=== PATIENT | male | born 1970 | race Caucasian/White ===

== ENCOUNTER 2023-05-22 18:59 | Inpatient (IN) ==
--- NOTE | 2023-05-22 19:10 | Emergency Department Note ---
History of Present Illness General Chief complaint: Back Injury/Pain Stated complaint: BACK PAIN,WRIST PAIN Time Seen by Provider: 05/22/23 19:08 History of Present Illness Maximum Pain Intensity: 10 This is a 52-year-old male that presents to the emergency department via private vehicle with complaints of "back pain, wrist pain". Patient states that he has been experiencing low back issues since 2007. He notes this was regarding old injury at L5-S1. He has been dealing with the pain but as of recent, particularly over the past few months notes worsening pain. Then, today he notes he was descending a set of attic stairs and an object he was carrying became caught and then released causing him to fall about 2 feet landing on his feet and then shoulder into a cabinet. He then fell to the ground catching himself with his hands. He notes low back pain that radiates down both legs with associated leg weakness. He notes he has had the low back pain and radicular symptoms before but the weakness is new. No loss of control or bowel/bladder. No genital numbness. The patient denies any pertinent past medical history other than the low back discomfort. He does note history of ACL surgery. He notes allergy to hydrocodone which causes some anger. He denies headache or loss of consciousness. No neck pain. No chest pain. No abdominal pain. Home Medications Medication Instructions Recorded Confirmed Type meloxicam 7.5 mg tablet 7.5 mg PO DAILY PRN pain #90 tabs 05/11/22 05/22/23 Rx ondansetron 4 mg disintegrating 4 mg PO Q6H PRN nausea and 11/03/22 05/22/23 Rx tablet vomiting #10 tabs rizatriptan 10 mg disintegrating See Rx Instructions PO .COMPLEX 11/19/22 05/22/23 Rx tablet #30 tabs lorazepam 1 mg tablet 1 mg PO DAILY PRN anxiety #30 tabs 03/11/23 05/22/23 Rx digital therapeutic,ALEYDA device #1 ea 04/22/23 05/22/23 Rx magnesium glycinate 400 mg (4 x 100 mg magnesium) PO 04/22/23 05/22/23 Rx DAILY #30 caps propranolol 60 mg capsule,24 60 mg PO DAILY #30 caps 04/22/23 05/22/23 Rx hr,extended release riboflavin (vitamin B2) 400 mg 400 mg PO DAILY #30 tabs 04/22/23 05/22/23 Rx tablet bupropion HCl 150 mg tablet,12 hr 150 mg PO QAM 05/10/23 05/22/23 History sustained-release aripiprazole 2 mg tablet 2 mg PO DAILY #30 tabs 05/13/23 05/22/23 Rx duloxetine 30 mg capsule,delayed 30 mg PO QAM 05/22/23 05/22/23 History release duloxetine 60 mg capsule,delayed 60 mg PO QAM 05/22/23 05/22/23 History release Allergies Allergy/AdvReac Type Severity Reaction Status Date / Time hydrocodone AdvReac Intermediate Irritable Verified 05/22/23 22:43 Past Med/Surg History Medical History Migraines Bilateral nonpulsatile tinnitus Depression with anxiety Chronic wrist pain Surgical History History of arthroscopy of left knee 11/03/22 ([place]) Left knee scope, PMM, subtotal lateral meniscectomy, chondroplasty and debridement of calcinosis Hx of colonoscopy Hx of tonsillectomy S/P ACL repair Left S/P ACL repair Right Family History Mother Brain cancer Father Diabetes Denies family history of Ovarian cancer Prostate cancer Myocardial infarction Breast cancer Colorectal cancer Social History Smoking Status: Never smoker Second Hand Exposure: Yes (hx as child); Do You Dip or Chew Tobacco: No; Hx Alcohol Use: No Hx Substance Use: No Preferred Language: Palauan Communication Ability: Effective Director Of Home Care Hospice Required: No Beliefs That Will Affect Care: None marital status: Current Living Situation: Significant Other current occupational status: employed Feels Safe at Home: Yes Childhood Exposure to Second-Hand Smoke: Yes Dental Care, Regularly: Yes Physical Activity Frequency: 3-4 Times per Week Seatbelt Use: always Sunscreen Use: Yes Assistive Devices: Glasses Review of Systems A total of 10 systems reviewed and were otherwise negative Physical Exam Vital Signs Vital Signs - 24 hr 05/22/23 19:00 05/22/23 19:51 05/22/23 19:52 Temperature 36.7 C Temperature Source Temporal Artery Scan Pulse Rate 82 Pulse Rate [Finger] 68 Pulse Rhythm [Finger] Pulse Strength [Finger] Respiratory Rate 18 18 Respiratory Effort / Characteristics Non-Labored Spontaneous Non-Labored Respiratory Depth Normal Normal Respiratory Pattern Regular Blood Pressure 155/75 H Blood Pressure [Left Arm] 103/77 Blood Pressure Mean 101 Blood Pressure Mean [Left Arm] 85 Blood Pressure Position Sitting Pulse Oximetry 94 94 94 Oxygen Delivery Method Room Air Room Air Sepsis Recent Fever Within 48 Hours No Sepsis New/Unexplained Change in Mental Status N/A Sepsis Action Taken by Nursing No Action Required 05/22/23 21:00 05/22/23 23:00 Temperature Temperature Source Pulse Rate Pulse Rate [Finger] 71 72 Pulse Rhythm [Finger] Regular Pulse Strength [Finger] Normal Respiratory Rate 14 16 Respiratory Effort / Characteristics Non-Labored Respiratory Depth Normal Respiratory Pattern Blood Pressure Blood Pressure [Left Arm] 130/95 127/88 Blood Pressure Mean Blood Pressure Mean [Left Arm] 106 101 Blood Pressure Position Pulse Oximetry 93 93 Oxygen Delivery Method Room Air Room Air Sepsis Recent Fever Within 48 Hours Sepsis New/Unexplained Change in Mental Status Sepsis Action Taken by Nursing VITAL SIGNS - Vital signs and nursing notes were reviewed. Stable and afebrile. GENERAL -52-year-old male appearing his stated age who is in no acute distress but appears to be in pain. Communicates well with provider and answers questions appropriately. SKIN - Without rashes. No meningeal or petechial rash. The skin overlying the back is unremarkable. No break in the integument. No erythema. No crepitus. HEAD - NC/AT. No dickson signs or raccoon's eyes. EYES - PERRL with EOMI bilaterally. Sclera anicteric. No subconjunctival hemorrhage. EARS -no blood from the ear canals. NOSE - Midline and without cyanosis. No epistaxis or purulent drainage noted. MOUTH/OROPHARYNX - Without perioral cyanosis. NECK - Neck with FROM. LUNGS -CTA CARDIAC - RRR ABDOMEN - Abdominal contour normal without pulsations or visible masses. No guarding or rigidity. EXTREMITIES - No clubbing or peripheral cyanosis. +5/5 strength noted in UE/LE bilaterally. NEUROLOGIC - Cranial nerves II through XII grossly intact. Sensory intact to light touch throughout. Initial assessment of patellar reflexes deferred noting the patient's discomfort and tense musculature in the lower extremities. PSYCH -alert, oriented and pleasant on exam. Course Administered Medications Discontinued Medications Dexamethasone Sodium Phosphate (DexamethasonePf 10 Mg/Ml Vial) 10 mg IV NOW ONE Stop: 05/22/23 21:35 Last Admin: 05/22/23 21:38 Dose: 10 mg Documented By: CASE Gadobutrol (Gadobutrol 65ml Vial) 10 ml IV ONCE ONE Stop: 05/23/23 01:48 Last Admin: 05/23/23 01:47 Dose: 10 ml Documented By: CONOR Hydromorphone HCl (Hydromorphone Inj 0.5 Mg/0.5 Ml Syr) 0.5 mg IV NOW STA Stop: 05/22/23 19:29 Last Admin: 05/22/23 19:44 Dose: 0.5 mg Documented By: CASE Hydromorphone HCl (Hydromorphone Inj 0.5 Mg/0.5 Ml Syr) 0.5 mg IV NOW STA Stop: 05/22/23 23:07 Last Admin: 05/22/23 23:35 Dose: 0.5 mg Documented By: ARY Hydromorphone HCl (Hydromorphone Inj 0.5 Mg/0.5 Ml Syr) 0.5 mg IV NOW STA Stop: 05/23/23 01:05 Last Admin: 05/23/23 01:15 Dose: 0.5 mg Documented By: ARY Ketorolac Tromethamine (Ketorolac Tromethamine 15 Mg/Ml Vial) 15 mg IV NOW STA Stop: 05/22/23 21:35 Last Admin: 05/22/23 21:39 Dose: 15 mg Documented By: CASE Ondansetron HCl (Ondansetron Inj 2 Mg/Ml 2 Ml Vial) 4 mg IV NOW STA Stop: 05/22/23 19:29 Last Admin: 05/22/23 19:44 Dose: 4 mg Documented By: CASE Medical Decision Making Laboratory Data 05/22/23 19:45 05/22/23 19:45 Lab Results 05/22/23 Range/Units 19:45 WBC 7.06 (4.8-10.8) K/ul RBC 5.25 (4.70-6.10) M/uL Hgb 17.0 (14.0-18.0) g/dl Hct 47.3 (42.0-52.0) % MCV 90.1 (80.0-100.0) fL MCH 32.4 (25.0-34.0) pg MCHC 35.9 (32.0-36.0) g/dL RDW Std Deviation 42.3 (36.4-46.3) fL RDW Coeff of Juan Miguel 12.8 (11.5-14.5) % Plt Count 209 (130-400) K/uL MPV 9.9 (9.4-12.4) fL Immature Gran % (Auto) 0.7 % Neut % (Auto) 57.0 % Lymph % (Auto) 28.0 % Edmunds % (Auto) 10.8 % Eos % (Auto) 2.8 % Baso % (Auto) 0.7 % Neut # (Auto) 4.02 (1.40-6.50) K/uL Lymph # (Auto) 1.98 (1.20-3.40) K/uL Edmunds # (Auto) 0.76 H (0.11-0.59) K/uL Eos # (Auto) 0.20 (0.00-0.50) K/uL Baso # (Auto) 0.05 (0.00-0.20) K/uL Immature Gran # (Auto) 0.05 (0.01-0.20) K/uL ESR 12 (0-20) mm/hr Sodium 135 L (136-145) mmol/L Potassium 4.4 (3.5-5.1) mmol/L Chloride 103 (98-107) mmol/L Carbon Dioxide 25 (21-32) mmol/L Anion Gap 7 (3-11) BUN 18 (6-23) mg/dl Creatinine 1.24 (0.6-1.4) mg/dl Est Cr Clr Drug Dosing Not Reportable Est GFR ( Amer) 75.9 ml/min Est GFR (Non-Af Amer) 65.5 ml/min BUN/Creatinine Ratio 14.5 (10-20) Glucose 105 H (70-99(Fasting)) mg/dl Calcium 9.2 (8.6-10.3) mg/dl Total Bilirubin 0.4 (0.2-1.0) mg/dl AST 29 (13-39) U/L ALT 51 (7-52) U/L Alkaline Phosphatase 126 H (34-104) U/L C-Reactive Protein < 0.50 (0-0.5) mg/dl Total Protein 6.8 (6.0-8.3) gm/dl Albumin 4.3 (3.4-5.0) gm/dl Globulin 2.5 (2.5-4.0) gm/dl Albumin/Globulin Ratio 1.7 (0.9-2) Procalcitonin 0.06 (0-0.5) ng/ml Imaging Data My Impression: L wrist: Per my interpretation: No acute fracture or dislocation. There are small ossific densities present within the joint space between the distal radius/ulna and carpal bones as well as chronic appearing abnormality to the distal ulnar styloid region. Radiologist's Impression: Lumbar Spine MRI 05/22/23 19:28 CR Exam(s): MRI L SPINE Without Contrast EXAM: MR Lumbar Spine Without Intravenous Contrast CLINICAL HISTORY: Reason for exam: Low back pain into legs, leg weakness. TECHNIQUE: Magnetic resonance images of the lumbar spine without intravenous contrast in multiple planes. COMPARISON: No relevant prior studies available. FINDINGS: Vertebrae: There are 5 lumbar type vertebral bodies with a mild generalized curve to the right and normal lumbar lordosis. There is normal vertebral body height and alignment. There is extensive bone marrow edema in the L4 vertebral body with subtle erosive endplate changes. There is minimal bone marrow edema at the superior endplate of L5. Reactive endplate changes at L5-S1. Spinal cord: The conus is normal size, shape and signal characteristics, terminating at L1-L2. Soft tissues: There is mild prevertebral soft tissue swelling at L5-S1. There is mild atrophy of the iliopsoas, paraspinous and intraspinous musculature. The aorta and IVC flow voids are intact. The visualized kidneys are unremarkable. IMPRESSION: Extensive bone marrow edema at L4 with erosive endplate changes at the inferior endplate and mild prevertebral soft tissue swelling concern for possible early discovertebral osteomyelitis or minimally displaced fracture. Recommend postcontrast MR imaging and CT scan for further evaluation. Communications: Verify Receipt Electronically signed by: Nikki Molina MD 05/23/23 00:34 AM MDM Narrative Patient was seen and evaluated as above in room D03b. Review was performed of triage nursing notes and vital signs. Patient presents to us today for evaluation of low back pain similar to previous but now with leg weakness. This is in the setting of very minimal trauma without any direct strike to the spine. He fell about 2 feet landing on his own feet. Vital signs here are stable. The patient does note lower extremity weakness but has not lost control of bowel/bladder. No genital numbness. No weakness on my assessment. Options of care were discussed with the patient. IV access was established. Patient was medicated with IV Dilaudid as well as IV Toradol and IV dexamethasone to manage his low back pain with radicular symptoms. It is felt that the benefit of the medication outweighed risk. Labs were drawn. There is no leukocytosis or concerning anemia. Mild hyponatremia 135. Mild hyperglycemia 105. Alk phos 126. X-ray of the patient's left wrist without definitive fracture or dislocation. There are small ossific densities present within the joint space between the distal radius/ulna and carpal bones as well as chronic appearing abnormality to the distal ulnar styloid region. Formal radiology report will be available in the a.m. Wrist overall very minimally tender and 02/24. Will hold off on splinting at this time. In regard to the back, we will proceed straight to MRI of the L-spine noting the patient's symptoms. This was obtained. Results as above. I was called by the [place] regarding this finding. I did speak to the radiologist as well. There is extensive bone marrow edema at L4 with erosive endplate changes at the inferior endplate and mild prevertebral soft tissue swelling concern for possible early or discovertebral osteomyelitis or minimally displaced fracture. Recommended postcontrast MR imaging and CT scan for further evaluation. In speaking with the radiologist we will proceed with CT of the L-spine without contrast as well as contrasted MRI of the L-spine. I did order the recommended studies. ESR, CRP and Pro-Woody within normal range. At this time we will proceed with further evaluation and management in the inpatient setting. Studies pending at this time. Case discussed with the hospitalist service. Please refer to further documentation regarding his stay. Patient amenable to plan of care. Case discussed with the attending physician. GCS: 15 In the evaluation and treatment of this patient the following differential diagnoses were entertained: Fracture, dislocation, subluxation, contusion, sprain, strain, osteomyelitis, discitis, Vertebral fracture, cord injury, cauda equina syndrome, among others. Impression & Plan Abnormal MRI, lumbar spine, Low back pain, Acute wrist pain Discharge Plan Visit Data Chief Complaint: Back Injury/Pain Stated Complaint: BACK PAIN,WRIST PAIN ED Provider: Diogo Moeller ED Midlevel Provider: Joe Augustine Discharge Problem: Abnormal MRI, lumbar spine, Low back pain, Acute wrist pain Patient Disposition: Admitted As Inpatient Condition: Good Forms Stand Alone Forms: My [facility] Prescriptions Prescriptions: No Action lorazepam 1 mg tablet 1 mg PO DAILY PRN (Reason: anxiety) Qty: 30 0RF Patient Comments: does not use often aripiprazole 2 mg tablet 2 mg PO DAILY Qty: 30 2RF meloxicam 7.5 mg tablet 7.5 mg PO DAILY PRN (Reason: pain) Qty: 90 3RF Nurtec ODT 75 mg tablet,disintegrating 75 mg PO DIRECTED PRN (Reason: Migraine Headache) 0RF riboflavin (vitamin B2) 400 mg tablet 400 mg PO DAILY Qty: 30 0RF magnesium glycinate 100 mg magnesium capsule 400 mg PO DAILY Qty: 30 0RF (DME) digital therapeutic,ALEYDA device Misc See Rx Instructions miscellaneous .MEDSUPPLY Qty: 1 0RF Rx Instructions: As directed propranolol 60 mg capsule,extended release 24 hr 60 mg PO DAILY Qty: 30 2RF rizatriptan 10 mg tablet,disintegrating See Rx Instructions PO .COMPLEX Qty: 30 3RF Rx Instructions: take 1 tab at onset of headache; if no relief may repeat 1 tab after at least 2 hrs; max = 3 tabs/24 hr PO bupropion HCl 150 mg tablet sustained-release 12 hr 150 mg PO QAM ondansetron 4 mg tablet,disintegrating 4 mg PO Q6H PRN (Reason: nausea and vomiting) Qty: 10 0RF duloxetine 30 mg capsule,delayed release(DR/EC) 30 mg PO QAM Rx Instructions: TOTAL DOSE 90 MG--TAKES WITH 60 MG CAP. duloxetine 60 mg capsule,delayed release(DR/EC) 60 mg PO QAM Rx Instructions: TOTAL DOSE 90 MG--TAKES WITH 30 MG CAP. Referrals Referrals: Kelin Perez MD [Primary Care Provider] -
[2023-05-22] MEDS: HYDROmorphone INJ 0.5 MG/0.5 ML SYR IV STA ×2 (19:44→23:35)
[2023-05-22] MEDS: ONDANSETRON INJ 2 MG/ML 2 ML VIAL IV STA (19:44)
[2023-05-22 20:01] LABS: Basophils # (auto) 0.05 K/uL (0.00-0.20); Basophils % (auto) 0.7 %; Eosinophils % (auto) 2.8 %; Hematocrit (blood only) 47.3 % (42.0-52.0); Immature Granulocytes # (auto) 0.05 K/uL (0.01-0.20); Immature Granulocytes % (auto) 0.7 %; Lymphocytes # (auto) 1.98 K/uL (1.20-3.40); Mean Corpuscular Hemoglobin 32.4 pg (25.0-34.0); Mean Corpuscular Hgb Conc 35.9 g/dL (32.0-36.0); Mean Corpuscular Volume 90.1 fL (80.0-100.0); Mean Platelet Volume 9.9 fL (9.4-12.4); Monocytes # (auto) 0.76 K/uL (0.11-0.59); Monocytes % (auto) 10.8 %; Neutrophils # (auto) 4.02 K/uL (1.40-6.50); Platelet Count 209 K/uL (130-400); RDW Coefficient of Variation 12.8 % (11.5-14.5); RDW Standard Deviation 42.3 fL (36.4-46.3); Red Blood Count 5.25 M/uL (4.70-6.10); White Blood Count 7.06 K/ul (4.8-10.8)
[2023-05-22 20:27] LABS: Alanine Aminotransferase 51 U/L (7-52); Albumin Globulin Ratio 1.7 (0.9-2); Albumin Level 4.3 gm/dl (3.4-5.0); Alkaline Phosphatase 126 U/L (34-104); BUN Creatinine Ratio 14.5 (10-20); Bilirubin,Total 0.4 mg/dl (0.2-1.0); Blood Urea Nitrogen 18 mg/dl (6-23); Calcium 9.2 mg/dl (8.6-10.3); Carbon Dioxide 25 mmol/L (21-32); Chloride 103 mmol/L (98-107); Est GFR (African American) 75.9 ml/min; Est GFR (Non-African American) 65.5 ml/min; Globulin 2.5 gm/dl (2.5-4.0); Glucose 105 mg/dl (70-99(Fasting)); Sodium 135 mmol/L (136-145); Total Protein 6.8 gm/dl (6.0-8.3)
[2023-05-22 20:33] LABS: Anion Gap 7 (3-11); Potassium 4.4 mmol/L (3.5-5.1)
[2023-05-22 20:42] LABS: Aspartate Aminotransferase 29 U/L (13-39)
[2023-05-22] MEDS: dexAMETHasone**PF** 10 MG/ML VIAL IV ONE (21:38)
[2023-05-22] MEDS: KETOROLAC TROMETHAMINE 15 MG/ML VIAL IV STA (21:39)
--- NOTE | 2023-05-23 00:35 | Magnetic Resonance Report ---
Exam(s): MRI L SPINE Without Contrast EXAM: MR Lumbar Spine Without Intravenous Contrast CLINICAL HISTORY: Reason for exam: Low back pain into legs, leg weakness. TECHNIQUE: Magnetic resonance images of the lumbar spine without intravenous contrast in multiple planes. COMPARISON: No relevant prior studies available. FINDINGS: Vertebrae: There are 5 lumbar type vertebral bodies with a mild generalized curve to the right and normal lumbar lordosis. There is normal vertebral body height and alignment. There is extensive bone marrow edema in the L4 vertebral body with subtle erosive endplate changes. There is minimal bone marrow edema at the superior endplate of L5. Reactive endplate changes at L5-S1. Spinal cord: The conus is normal size, shape and signal characteristics, terminating at L1-L2. Soft tissues: There is mild prevertebral soft tissue swelling at L5-S1. There is mild atrophy of the iliopsoas, paraspinous and intraspinous musculature. The aorta and IVC flow voids are intact. The visualized kidneys are unremarkable. IMPRESSION: Extensive bone marrow edema at L4 with erosive endplate changes at the inferior endplate and mild prevertebral soft tissue swelling concern for possible early discovertebral osteomyelitis or minimally displaced fracture. Recommend postcontrast MR imaging and CT scan for further evaluation. Communications: Verify Receipt Electronically signed by: Nikki Molina MD 05/23/23 00:34 AM
--- NOTE | 2023-05-23 01:11 | Emergency Department Note ---
ED Visit Note I have personally evaluated this patient examined him and reviewed the pertinent labs and data. I have discussed the case with the physician certified nursing assistant and agree with the plan. Please refer to the PA note This patient has had chronic back issues that have gotten worse over the last couple months today he had a episode where he landed on his feet after falling about 2 feet. There is no direct trauma to the back. He has had a lot of pain since then and feels like he has some numbness on the lateral aspects of his leg. On my exam, he subjectively has decreased sensation of the lateral aspect of the upper legs he seems to have intact motor however and it is limited secondary to pain. He has no white count or fever to suggest infection. His MRI shows bony abnormality and L4 could be related to osteomyelitis, traumatic injury, both or other. He does not require additional IV pain medication I do not feel he can go home I do think he needs to be admitted/observed for pain management and further imaging to include a contrast MRI and CT. We will consult inpatient team. .
[2023-05-23] MEDS: HYDROmorphone INJ 0.5 MG/0.5 ML SYR IV STA ×2 (01:15→04:04)
[2023-05-23] MEDS: GADOBUTROL 65ML VIAL IV ONE (01:47)
[2023-05-23 02:33] LABS: C Reactive Protein < 0.50 mg/dl (0-0.5)
[2023-05-23] MEDS: diphenhydrAMINE 50 MG/ML VIAL IV STA (04:05)
--- NOTE | 2023-05-23 04:08 | CT Scan Report ---
Exam(s): CT L SPINE EXAM: CT Lumbar Spine Without Intravenous Contrast CLINICAL HISTORY: Reason for exam: Low back pain, leg weakness, abnormal MRI. TECHNIQUE: Axial computed tomography images of the lumbar spine without intravenous contrast. Automated exposure control was utilized for the study. A dose lowering technique was utilized adhering to the principles of ALARA. COMPARISON: Comparison made to prior MRI of the lumbar spine from May 22, 2023 at 9: 56 PM. FINDINGS: Vertebrae: There are 5 lumbar type vertebral bodies with a mild generalized curve to the left and normal lumbar lordosis. There is normal vertebral body height and alignment. There are erosive endplate changes at the inferior endplate of L4 with bony sclerosis. Subtle erosive endplate changes at the superior endplate of L5. There is advanced disc degeneration at L5-S1. No acute fracture. There is mild wedging of the L1 segment, which is likely physiologic. Discs/spinal canal/neural foramina: No acute findings. No spinal canal stenosis. Soft tissues: Unremarkable. IMPRESSION: Findings consistent with discovertebral osteomyelitis at L4-5. Communications: Verify Receipt Electronically signed by: Nikki Molina MD 05/23/23 04:08 AM
--- NOTE | 2023-05-23 04:20 | Magnetic Resonance Report ---
Exam(s): MRI L SPINE With Contrast IV Amt: 10 cc landon EXAM: MR Lumbar Spine With Intravenous Contrast CLINICAL HISTORY: Reason for exam: Abnormal spine MR, back pain, leg weakness. TECHNIQUE: Magnetic resonance images of the lumbar spine with intravenous contrast in multiple planes. CONTRAST: Patient received 10 cc landon of IV contrast COMPARISON: Comparison made to prior MRI of the lumbar spine from May 22, [address] scan of the lumbar spine from May 23, 2023. FINDINGS: Vertebrae: There is significantly increased enhancement of the L4 and mild increased enhancement of the L5 vertebral body with enhancement at the margins of the L4-5 disc. There is a small epidural abscess/phlegmon at L4 and L5. No acute fracture. Spinal cord: Unremarkable. Normal signal. No abnormal enhancement. Soft tissues: Mild prevertebral phlegmon at L4 and L5. IMPRESSION: Findings consistent with discovertebral osteomyelitis at L4-5 with small ventral epidural phlegmon/abscess. Communications: Verify Receipt Electronically signed by: Nikki Molina MD 05/23/23 04:19 AM
[2023-05-23] MEDS ORDERED: VANCOMYCIN CONSULT ACTIVE PRN (05:27)
--- NOTE | 2023-05-23 05:27 | Emergency Department Note ---
ED Visit Note Patient care was assumed from my colleague, Joe Augustine PA-C, at the time of shift change. Please see . Davide's dictation for full history of present illness and emergency department course prior to my assumption of care. In short, the patient has back pain with abnormal appearing noncontrast MRI. Recommendation was to perform contrast MRI, which did return showing concerns for osteomyelitis and small phlegmon versus abscess. Because of this finding the case was discussed with on-call [facility], Dr. Stiles, in consult. Images were pushed to the [employer] system for their review. Recommendation is to start vancomycin and cefepime and await blood culture results. No emergent surgical intervention is necessary at this time. The case was discussed with the on-call hospitalist team. Please see their dictation for further patient course, plan, and disposition. .
[2023-05-23] MEDS ORDERED: CEFEPIME 20 ML IV STA (05:32)
--- NOTE | 2023-05-23 05:44 | History & Physical Report ---
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 Hinton from orthopedic spine surgery at [place] suggest placing patient on vancomycin IV and cefepime IV and admission at [facility] Orthopedic spine surgery Dr. Johnson has been consulted, and reportedly will be available on 05/24 Overall patient is relatively comfortable after pain regimen Acetaminophen 650 mg by mouth every 6 hours as needed for mild pain or fever [place] 5/325, 1 every 6 hours as needed for moderate pain Dilaudid 0.5 mg IV every 3 hours as needed for severe pain Patient did receive a single dose of dexamethasone 10 mg IV from the ED, will not continue Baclofen 10 mg p.o. 3 times daily Depression with anxiety- Continue aripiprazole, bupropion, duloxetine, lorazepam History of migraines- Continue propranolol extended release, riboflavin and rizatriptan as needed History of Present Illness Chief Complaint: The patient presents to the emergency department with an acute worsening of chronic low back pain after getting his pant leg caught on a sprain of a attic stairway as he was walking down, missing the last 2 steps and landing with his left leg extended causing an aggravation of his left lower extremity radiculopathy and low back pain Primary Care Provider: Kelin Perez MD The patient is a 52-year-old male with a past medical history including depression with anxiety, arthroscopic left knee surgery, chronic wrist pain and wrist arthropathy, and migraine with aura. Initially had injury to his back in about 1988, and has been conservative in therapy since that time. He had an injury again in 2007, and off-and-on since that time has had discussions regarding replacement of one of his lumbar disks versus fusion of L4-L5. He has been trying to put this off as long as he could, as he has ultimately been recommended by a member of specialist. He reports that he has been thinking more about having a potential surgery, and unfortunately yesterday had an acute aggravation of his chronic low back pain due to the injury on attic steps. At this point he is unable to walk. He reports that he injured his back in his garage which is about half a block from his house, and reports having to crawl back to his house because he could not walk. When he got back to his house, put his 2 dogs away, got in his car and drove to the emergency department Allergies Allergy/AdvReac Type Severity Reaction Status Date / Time hydrocodone AdvReac Intermediate Irritable Verified 05/22/23 22:43 Home Medications Medication Instructions Recorded Confirmed Type meloxicam 7.5 mg tablet 7.5 mg PO DAILY PRN pain #90 tabs 05/11/22 05/22/23 Rx ondansetron 4 mg disintegrating 4 mg PO Q6H PRN nausea and 11/03/22 05/22/23 Rx tablet vomiting #10 tabs rizatriptan 10 mg disintegrating See Rx Instructions PO .COMPLEX 11/19/22 05/22/23 Rx tablet #30 tabs lorazepam 1 mg tablet 1 mg PO DAILY PRN anxiety #30 tabs 03/11/23 05/22/23 Rx digital therapeutic,ALEYDA device #1 ea 04/22/23 05/22/23 Rx magnesium glycinate 400 mg (4 x 100 mg magnesium) PO 04/22/23 05/22/23 Rx DAILY #30 caps propranolol 60 mg capsule,24 60 mg PO DAILY #30 caps 04/22/23 05/22/23 Rx hr,extended release riboflavin (vitamin B2) 400 mg 400 mg PO DAILY #30 tabs 04/22/23 05/22/23 Rx tablet bupropion HCl 150 mg tablet,12 hr 150 mg PO QAM 05/10/23 05/22/23 History sustained-release aripiprazole 2 mg tablet 2 mg PO DAILY #30 tabs 05/13/23 05/22/23 Rx duloxetine 30 mg capsule,delayed 30 mg PO QAM 05/22/23 05/22/23 History release duloxetine 60 mg capsule,delayed 60 mg PO QAM 05/22/23 05/22/23 History release Past Med/Surg History Medical History Migraines Bilateral nonpulsatile tinnitus Depression with anxiety Chronic wrist pain Surgical History History of arthroscopy of left knee 11/03/22 ([place]) Left knee scope, PMM, subtotal lateral meniscectomy, chondroplasty and debridement of calcinosis Hx of colonoscopy Hx of tonsillectomy S/P ACL repair Left S/P ACL repair Right Family History Mother Brain cancer Father Diabetes Denies family history of Ovarian cancer Prostate cancer Myocardial infarction Breast cancer Colorectal cancer Social History Smoking Status: Never smoker Second Hand Exposure: Yes (hx as child); Do You Dip or Chew Tobacco: No; Hx Alcohol Use: No Hx Substance Use: No Preferred Language: Bulgarian Communication Ability: Effective [employer] Professor Required: No Beliefs That Will Affect Care: None marital status: Current Living Situation: Significant Other current occupational status: employed Feels Safe at Home: Yes Childhood Exposure to Second-Hand Smoke: Yes Dental Care, Regularly: Yes Physical Activity Frequency: 3-4 Times per Week Seatbelt Use: always Sunscreen Use: Yes Assistive Devices: Glasses Review of Systems Review of Systems: The patient denies chest pain, palpitations, shortness of breath, dyspnea on exertion, cough, lower extremity swelling, sore throat, fevers, chills, sweats, weight change, fatigue, nausea, vomiting, diarrhea , constipation, abdominal pain, pelvic pain, blood in urine or stool, dysuria, urinary frequency or urgency, lightheadedness, dizziness, headache, memory loss, loss of consciousness, rash, abnormal bruising or bleeding, focal or generalized weakness, numbness or tingling in arms, generalized arthralgias or myalgias, neck pain, or night sweats. The review of systems is otherwise negative other than for that already noted above, and at least 10 systems have been reviewed. Physical Exam Physical Exam: The patient is awake, alert and oriented 3, well developed and well nourished, normocephalic and atraumatic, lying in bed on his right side, and in no acute distress after receiving IV Dilaudid HEENT--PERRL, EOMI, mucous membranes and oropharynx normal. Neck--supple. No JVD. No bruits. Thyroid normal, trachea midline, no adenopathy. Heart--normal S1 and S2. No murmurs, rubs or gallops. Lungs--clear bilaterally, no respiratory distress, no accessory muscle use. Abdomen--normal bowel sounds and soft. Nontender. Nondistended, no hernias or masses, no organomegaly. Extremities--no cyanosis or clubbing. No edema. There are good distal pulses b/l. Dermatologic--normal skin turgor, normal color, no abnormal lymph nodes, no rash. Neurologic--cranial nerves II through XII grossly intact. Rheumatologic--limited exam due to pain Psychiatric--normal affect. Results & Data Results & Data Vital Signs (Past 12 Hours) Vital Signs Temp Pulse Pulse Resp BP BP Pulse Ox 05/22/23 23:00 72 16 127/88 93 05/22/23 21:00 71 14 130/95 93 05/22/23 19:52 68 18 103/77 94 05/22/23 19:51 94 05/22/23 19:00 36.7 C 82 18 155/75 H 94 O2 Del Method 05/22/23 23:00 Room Air 05/22/23 21:00 Room Air 05/22/23 19:52 05/22/23 19:51 Room Air 05/22/23 19:00 Room Air Laboratory Results Laboratory Results WBC 7.06 K/ul (4.8-10.8) 05/22/23 19:45 RBC 5.25 M/uL (4.70-6.10) 05/22/23 19:45 Hgb 17.0 g/dl (14.0-18.0) 05/22/23 19:45 Hct 47.3 % (42.0-52.0) 05/22/23 19:45 MCV 90.1 fL (80.0-100.0) 05/22/23 19:45 MCH 32.4 pg (25.0-34.0) 05/22/23 19:45 MCHC 35.9 g/dL (32.0-36.0) 05/22/23 19:45 RDW Std Deviation 42.3 fL (36.4-46.3) 05/22/23 19:45 RDW Coeff of Juan Miguel 12.8 % (11.5-14.5) 05/22/23 19:45 Plt Count 209 K/uL (130-400) 05/22/23 19:45 MPV 9.9 fL (9.4-12.4) 05/22/23 19:45 Immature Gran % (Auto) 0.7 % 05/22/23 19:45 Neut % (Auto) 57.0 % 05/22/23 19:45 Lymph % (Auto) 28.0 % 05/22/23 19:45 [place] % (Auto) 10.8 % 05/22/23 19:45 Eos % (Auto) 2.8 % 05/22/23 19:45 Baso % (Auto) 0.7 % 05/22/23 19:45 Neut # (Auto) 4.02 K/uL (1.40-6.50) 05/22/23 19:45 Lymph # (Auto) 1.98 K/uL (1.20-3.40) 05/22/23 19:45 [place] # (Auto) 0.76 K/uL (0.11-0.59) H 05/22/23 19:45 Eos # (Auto) 0.20 K/uL (0.00-0.50) 05/22/23 19:45 Baso # (Auto) 0.05 K/uL (0.00-0.20) 05/22/23 19:45 Immature Gran # (Auto) 0.05 K/uL (0.01-0.20) 05/22/23 19:45 ESR 12 mm/hr (0-20) 05/22/23 19:45 Sodium 135 mmol/L (136-145) L 05/22/23 19:45 Potassium 4.4 mmol/L (3.5-5.1) 05/22/23 19:45 Chloride 103 mmol/L (98-107) 05/22/23 19:45 Carbon Dioxide 25 mmol/L (21-32) 05/22/23 19:45 Anion Gap 7 (3-11) 05/22/23 19:45 BUN 18 mg/dl (6-23) 05/22/23 19:45 Creatinine 1.24 mg/dl (0.6-1.4) 05/22/23 19:45 Est Cr Clr Drug Dosing Not Reportable 05/22/23 19:45 Est GFR ( Amer) 75.9 ml/min 05/22/23 19:45 Est GFR (Non-Af Amer) 65.5 ml/min 05/22/23 19:45 BUN/Creatinine Ratio 14.5 (10-20) 05/22/23 19:45 Glucose 105 mg/dl (70-99(Fasting)) H 05/22/23 19:45 Calcium 9.2 mg/dl (8.6-10.3) 05/22/23 19:45 Total Bilirubin 0.4 mg/dl (0.2-1.0) 05/22/23 19:45 AST 29 U/L (13-39) 05/22/23 19:45 ALT 51 U/L (7-52) 05/22/23 19:45 Alkaline Phosphatase 126 U/L (34-104) H 05/22/23 19:45 C-Reactive Protein < 0.50 mg/dl (0-0.5) 05/22/23 19:45 Total Protein 6.8 gm/dl (6.0-8.3) 05/22/23 19:45 Albumin 4.3 gm/dl (3.4-5.0) 05/22/23 19:45 Globulin 2.5 gm/dl (2.5-4.0) 05/22/23 19:45 Albumin/Globulin Ratio 1.7 (0.9-2) 05/22/23 19:45 Procalcitonin 0.06 ng/ml (0-0.5) 05/22/23 19:[address] 05/23/23 01:05 CR Exam(s): CT L SPINE EXAM: CT Lumbar Spine Without Intravenous Contrast CLINICAL HISTORY: Reason for exam: Low back pain, leg weakness, abnormal MRI. TECHNIQUE: Axial computed tomography images of the lumbar spine without intravenous contrast. Automated exposure control was utilized for the study. A dose lowering technique was utilized adhering to the principles of ALARA. COMPARISON: Comparison made to prior MRI of the lumbar spine from May 22, 2023 at 9: 56 PM. FINDINGS: Vertebrae: There are 5 lumbar type vertebral bodies with a mild generalized curve to the left and normal lumbar lordosis. There is normal vertebral body height and alignment. There are erosive endplate changes at the inferior endplate of L4 with bony sclerosis. Subtle erosive endplate changes at the superior endplate of L5. There is advanced disc degeneration at L5-S1. No acute fracture. There is mild wedging of the L1 segment, which is likely physiologic. Discs/spinal canal/neural foramina: No acute findings. No spinal canal stenosis. Soft tissues: Unremarkable. IMPRESSION: Findings consistent with discovertebral osteomyelitis at L4-5. Communications: Verify Receipt Electronically signed by: Nikki Molina MD 05/23/23 04:08 AM Lumbar Spine MRI 05/23/23 01:05 CR Exam(s): MRI L SPINE With Contrast IV Amt: 10 cc landon EXAM: MR Lumbar Spine With Intravenous Contrast CLINICAL HISTORY: Reason for exam: Abnormal spine MR, back pain, leg weakness. TECHNIQUE: Magnetic resonance images of the lumbar spine with intravenous contrast in multiple planes. CONTRAST: Patient received 10 cc landon of IV contrast COMPARISON: Comparison made to prior MRI of the lumbar spine from May 22, [address] scan of the lumbar spine from May 23, 2023. FINDINGS: Vertebrae: There is significantly increased enhancement of the L4 and mild increased enhancement of the L5 vertebral body with enhancement at the margins of the L4-5 disc. There is a small epidural abscess/phlegmon at L4 and L5. No acute fracture. Spinal cord: Unremarkable. Normal signal. No abnormal enhancement. Soft tissues: Mild prevertebral phlegmon at L4 and L5. IMPRESSION: Findings consistent with discovertebral osteomyelitis at L4-5 with small ventral epidural phlegmon/abscess. Communications: Verify Receipt Electronically signed by: Nikki Molina MD 05/23/23 04:19 AM Code Status & VTE Plan Code Status Full code VTE Prophylaxis Plan VTE Prophylaxis will be ordered: Yes PG Care Time/CCT Total # of Minutes Spent Total Time Spent with Patient: Total time spent is greater than 50% in coordination of care (as documented) at patient's floor/unit and/or counseling patient: Coding Level of Care Code 40905 INT INP/OBS CARE 3/75MIN Diagnoses Osteomyelitis of lumbar vertebra M46.26 Epidural abscess, L2-L5 G06.1 Depression with anxiety F41.8
[2023-05-23] MEDS ORDERED: ONDANSETRON INJ 2 MG/ML 2 ML VIAL IV PRN (06:04)
[2023-05-23] MEDS ORDERED: ACETAMINOPHEN 325 MG TAB PO PRN (06:04)
[2023-05-23] MEDS ORDERED: LORazepam 1 MG TAB PO PRN (06:04)
[2023-05-23] MEDS ORDERED: ONDANSETRON 4 MG OD TAB PO PRN (06:04)
[2023-05-23] MEDS: VANCOMYCIN HCL 2,000 MG in SODIUM CHLORIDE 0.9% 500 ML IV STA (06:08)
[2023-05-23] MEDS: CEFEPIME 2,000 MG in SYRINGE 0 ML IV ONE (06:08)
[2023-05-23] MEDS ORDERED: RIZATRIPTAN BENZOATE MLT 10 MG TAB PO PRN (06:10)
[2023-05-23] MEDS: buPROPion SR 150 MG TABCR PO SCH (08:07)
[2023-05-23] MEDS: HYDROCODONE/ACETAMOPHEN 5/325MG TAB PO PRN (08:07)
[2023-05-23] MEDS: BACLOFEN 10 MG TAB PO SCH (08:07)
[2023-05-23] MEDS: ARIPIprazole 1 MG/ML ORAL SOLN 150 ML BTL PO SCH (08:08)
[2023-05-23] MEDS: DULoxetine HCL 60 MG CAP PO SCH (08:08)
[2023-05-23] MEDS: DULoxetine HCL 30 MG CAP PO SCH (08:08)
[2023-05-23] MEDS: MELOXICAM 7.5 MG TAB PO PRN (08:08)
[2023-05-23] MEDS: PROPRANOLOL HCL 60 MG LA CAP PO SCH (08:08)
[2023-05-23] MEDS: HYDROmorphone INJ 0.5 MG/0.5 ML SYR IV PRN (08:47)
[2023-05-23] MEDS ORDERED: NON-FORMULARY MEDICATION (Riboflavin (Vitamin B2) 400 mg tablet) PO SCH (09:00)
[2023-05-23] MEDS ORDERED: NON-FORMULARY MEDICATION (Magnesium Glycinate 100 mg magnesium capsule) PO SCH (09:00)
--- NOTE | 2023-05-23 09:33 | XRay Report ---
XR wrist LT w scaphoid CLINICAL HISTORY: Fall, L wrist pain TECHNIQUE: 4 views of the right wrist were obtained. Comparison: None available at the time of this dictation. FINDINGS: There is no evidence of an acute fracture. Degenerative changes are seen most prominent in the radiol unate articulation. Chronic appearing ulnar styloid bony fragment. No soft tissue abnormality is seen . IMPRESSION: Degenerative changes without evidence of acute abnormality. ACT 112: Negative or not required by law. Electronically signed by: Vitaly Olson M.D. 05/23/2023 9:32 AM
--- NOTE | 2023-05-23 10:34 | Orthopedic Consultation ---
Date of Consultation May 23, 2023 Assessment & Plan (1) Neurogenic claudication due to lumbar spinal stenosis: Assessment advanced lumbar degenerative disc disease with Modic 1 and Modic 2 type changes with neurogenic claudication. Plan at this time the diagnosis of osteomyelitis epidural abscess seems unlikely. He has no inflammatory markers demonstrating infection. His platelet count is normal. White count normal. CAT scan MRI findings demonstrate evidence of advanced degenerative disc disease with inflammatory changes and fatty infiltrate of the adjacent bony structures. While it does appear to be markedly inflamed this would be consistent with degenerative change only. At this point he could consider surgical invention. Would require lumbar decompression and fusion L4-L5 L5-S1 to to stabilize these levels, decompress the nerve roots and provide marked improvement of his symptom complex. History of Present Illness Reason for Consultation: Back and bilateral leg pain Attending Physician: Galindo Mathews MD History of Present Illness This is a 52-year-old male presents yesterday after a fall at home. He states he fell landing on his feet and had a significant onset of back and bilateral thigh pain. It radiated down his legs to his knees. Did cause him to come to the emergency room for evaluation. He does have a longstanding history of axial back pain and limitations. Is clearly clearly limited his quality of life. He describes a history of intense migraines with associated chills. He does not describe specific fevers at home. He describes mostly axial pain with any activity bending lifting or twisting. He denies any loss of bowel or bladder control. Allergies Allergy/AdvReac Type Severity Reaction Status Date / Time hydrocodone AdvReac Intermediate Irritable Verified 05/22/23 22:43 Home Medications Medication Instructions Recorded Confirmed Type meloxicam 7.5 mg tablet 7.5 mg PO DAILY PRN pain #90 tabs 05/11/22 05/22/23 Rx ondansetron 4 mg disintegrating 4 mg PO Q6H PRN nausea and 11/03/22 05/22/23 Rx tablet vomiting #10 tabs rizatriptan 10 mg disintegrating See Rx Instructions PO .COMPLEX 11/19/22 05/22/23 Rx tablet #30 tabs lorazepam 1 mg tablet 1 mg PO DAILY PRN anxiety #30 tabs 03/11/23 05/22/23 Rx digital therapeutic,ALEYDA device #1 ea 04/22/23 05/22/23 Rx magnesium glycinate 400 mg (4 x 100 mg magnesium) PO 04/22/23 05/22/23 Rx DAILY #30 caps propranolol 60 mg capsule,24 60 mg PO DAILY #30 caps 04/22/23 05/22/23 Rx hr,extended release riboflavin (vitamin B2) 400 mg 400 mg PO DAILY #30 tabs 04/22/23 05/22/23 Rx tablet bupropion HCl 150 mg tablet,12 hr 150 mg PO BID 05/10/23 05/23/23 History sustained-release aripiprazole 2 mg tablet 2 mg PO DAILY #30 tabs 05/13/23 05/22/23 Rx duloxetine 30 mg capsule,delayed 30 mg PO QAM 05/22/23 05/22/23 History release duloxetine 60 mg capsule,delayed 60 mg PO QAM 05/22/23 05/22/23 History release Patient History Medical History Migraines Bilateral nonpulsatile tinnitus Depression with anxiety Chronic wrist pain Surgical History History of arthroscopy of left knee 11/03/22 ([place]) Left knee scope, PMM, subtotal lateral meniscectomy, chondroplasty and debridement of calcinosis Hx of colonoscopy Hx of tonsillectomy S/P ACL repair Left S/P ACL repair Right Family History Mother Brain cancer Father Diabetes Denies family history of Ovarian cancer Prostate cancer Myocardial infarction Breast cancer Colorectal cancer Social History Smoking Status: Never smoker Second Hand Exposure: Yes (hx as child); Do You Dip or Chew Tobacco: No; Hx Alcohol Use: No Hx Substance Use: No Preferred Language: Tajik Communication Ability: Effective [employer] Required: No Beliefs That Will Affect Care: None marital status: Current Living Situation: Significant Other Current Living Situation Comment: Lives with Fiance. current occupational status: employed Feels Safe at Home: Yes Childhood Exposure to Second-Hand Smoke: Yes Dental Care, Regularly: Yes Physical Activity Frequency: 3-4 Times per Week Seatbelt Use: always Sunscreen Use: Yes Assistive Devices: Hospital Bed Physical Exam Physical Exam: On exam patient is currently in bed. Appears comfortable. He is not in acute distress. He has +5-5 plantarflexion dorsiflexion extensor houses longus quadriceps bilaterally. Sensory is intact. Results & Data Vital Signs (Past 12 Hours) Vital Signs Temp Pulse Resp BP Pulse Ox O2 Del Method O2 Flow Rate 05/23/23 07:07 36.6 C 93 H 18 137/69 95 Nasal Cannula 2 05/23/23 05:50 36.6 C 80 16 132/83 94 Nasal Cannula 2 05/22/23 23:00 72 16 127/88 93 Room Air
--- NOTE | 2023-05-23 10:50 | Pharmacy Report ---
Pharmacy PK ABX Note - Date of Service May 23, 2023 - Assessment and Plan Assessment 52 year old M receiving Vancomycin and Cefepime for treatment of possible vertebral osteomyelitis. * Day #1 of antimicrobial therapy. * Afebrile, no leukocytosis, SCr 1.24 mg/dL, ESR/CRP normal. * No cultures. Plan Vancomycin * Loading dose: 2000 mg IV x 1 * Maintenance dose: 1000 mg IV every 12 hours * Regimen is predicted to achieve target AUC/JODI of 400-600 mg/L.hr * Random level ordered for: 05/25/23 at noon Pharmacy will continue to follow and will adjust dose/frequency as necessary. Thank you. Pharmacy has transitioned to AUC monitoring for vancomycin. AUC/JODI is the preferred PK/PD target and is associated with decreased risk of nephrotoxicity compared to traditional trough targets.
--- NOTE | 2023-05-23 13:18 | Communication Note ---
Date of Service: May 23, 2023 Please refer to the H&P dictated earlier this morning for details of presentation on admission. In brief, the patient presented with acute worsening of chronic back pain. CT and MRI of the lumbar spine showed findings consistent with osteomyelitis and epidural abscess. [facility] consulted. Patient has been started on IV vancomycin and cefepime. His presentation is not very suggestive of infection. However we will monitor him on antibiotics. [facility]ospine will decide on surgery.
[2023-05-23] MEDS: VANCOMYCIN HCL 1,000 MG in SODIUM CHLORIDE 0.9% 250 ML IV SCH (13:31)
[2023-05-23] MEDS: CEFEPIME 2,000 MG in SYRINGE 0 ML IV SCH (13:32)
[2023-05-24] MEDS: MELATONIN 3 MG TAB PO PRN (04:40)
[2023-05-24 06:08] LABS: Basophils # (auto) 0.03 K/uL (0.00-0.20); Basophils % (auto) 0.3 %; Eosinophils # (auto) 0.11 K/uL (0.00-0.50); Eosinophils % (auto) 1.2 %; Hematocrit (blood only) 41.3 % (42.0-52.0); Hemoglobin 14.2 g/dl (14.0-18.0); Immature Granulocytes # (auto) 0.05 K/uL (0.01-0.20); Immature Granulocytes % (auto) 0.5 %; Lymphocytes # (auto) 1.99 K/uL (1.20-3.40); Mean Corpuscular Hemoglobin 30.9 pg (25.0-34.0); Mean Corpuscular Hgb Conc 34.4 g/dL (32.0-36.0); Mean Corpuscular Volume 89.8 fL (80.0-100.0); Mean Platelet Volume 9.9 fL (9.4-12.4); Monocytes # (auto) 1.01 K/uL (0.11-0.59); Monocytes % (auto) 10.6 %; Neutrophils % (auto) 66.4 %; Platelet Count 176 K/uL (130-400); RDW Coefficient of Variation 12.9 % (11.5-14.5); RDW Standard Deviation 42.5 fL (36.4-46.3); White Blood Count 9.49 K/ul (4.8-10.8)
[2023-05-24 06:24] LABS: Albumin Level 3.7 gm/dl (3.4-5.0); BUN Creatinine Ratio 16.1 (10-20); Calcium 8.5 mg/dl (8.6-10.3); Creatinine Clr Calc Pharmacy 90.8 ml/min; Est GFR (African American) 85.9 ml/min; Est GFR (Non-African American) 74.1 ml/min; Phosphorus 2.6 mg/dl (2.5-4.9); Potassium 4.1 mmol/L (3.5-5.1)
--- NOTE | 2023-05-24 15:54 | Orthopedic Progress Note ---
Date of Service May 24, 2023 Assessment & Plan (1) Neurogenic claudication due to lumbar spinal stenosis: Plan: Plan at this time patient's had years of axial back pain with bilateral leg pain exacerbated recently from a fall. There is some concern regarding epidural abscess, discitis and osteomyelitis. He would like to consider surgical invention. Surgery require a lumbar decompression and fusion L4-L5 L5-S1. This would allow us to adequately stabilize the spine and address all neural compression. In the event that we discover an infection we would also have to treat this accordingly. Risk benefits pros cons alternatives were all in detail. All questions were addressed. Will make him n.p.o. after midnight and perform surgery soon as possible. Admission and Anticipated Discharge Date Admission Date: May 23, 2023 Subjective Patient is continued to have significant back and leg pain. He does feel his leg symptoms have improved over the past 24 hours. Physical Exam Physical Exam: He is in bed at this time. Reasonable strength testing lower extremities. Results & Data Vital Signs (Past 12 Hours) Vital Signs Temp Pulse Resp BP Pulse Ox O2 Del Method O2 Flow Rate 05/24/23 13:41 36.4 C L 53 L 16 108/65 96 Room Air 05/24/23 08:04 63 96 Nasal Cannula 2 05/24/23 06:57 36.4 C L 59 L 16 108/65 97 Nasal Cannula 2
--- NOTE | 2023-05-24 16:37 | Anesthesiology Consultation ---
Date of Service May 24, 2023 Assessment & Plan Chart Review Chart Review: Acceptable Risk for Surgery Consults Requested none History Surgery Operation Date: 05/25/23 12:45 Proposed Procedures p L4-L5, L5-S1 Decompression and Fusion, Spinal Cord Monitoring - Thai Johnson DO Height/Weight Height: 5 ft 11 in Weight: 99.8 kg Allergies Allergy/AdvReac Type Severity Reaction Status Date / Time hydrocodone AdvReac Intermediate Irritable Verified 05/22/23 22:43 Medications Home Medications Medication Instructions Recorded Confirmed Last Taken meloxicam 7.5 mg tablet 7.5 mg PO DAILY PRN pain #90 tabs 05/11/22 05/22/23 Unknown ondansetron 4 mg disintegrating 4 mg PO Q6H PRN nausea and 11/03/22 05/22/23 Unknown tablet vomiting #10 tabs rizatriptan 10 mg disintegrating See Rx Instructions PO .COMPLEX 11/19/22 05/22/23 02/12/23 tablet #30 tabs lorazepam 1 mg tablet 1 mg PO DAILY PRN anxiety #30 tabs 03/11/23 05/22/23 Unknown digital therapeutic,ALEYDA device #1 ea 04/22/23 05/22/23 Unknown magnesium glycinate 400 mg (4 x 100 mg magnesium) PO 04/22/23 05/22/23 05/22/23 DAILY #30 caps propranolol 60 mg capsule,24 60 mg PO DAILY #30 caps 04/22/23 05/22/23 05/22/23 hr,extended release riboflavin (vitamin B2) 400 mg 400 mg PO DAILY #30 tabs 04/22/23 05/22/23 05/22/23 tablet bupropion HCl 150 mg tablet,12 hr 150 mg PO BID 05/10/23 05/23/23 05/22/23 sustained-release aripiprazole 2 mg tablet 2 mg PO DAILY #30 tabs 05/13/23 05/22/23 05/22/23 duloxetine 30 mg capsule,delayed 30 mg PO QAM 05/22/23 05/22/23 05/22/23 release duloxetine 60 mg capsule,delayed 60 mg PO QAM 05/22/23 05/22/23 05/22/23 release Active Medications Generic Name Dose Route Start Last Admin Trade Name Freq PRN Reason Stop Dose Admin Hydrocodone Bitart/Acetaminophen 1 tab 05/23/23 06:04 05/23/23 08:07 Hydrocodone/Acetamophen 5/325mg Tab PO 06/06/23 06:03 1 tab Q6H PRN Administration Moderate Pain (Scale 4, 5, 6) Aripiprazole 2 mg 05/23/23 09:00 05/24/23 08:02 Aripiprazole 1 Mg/Ml Oral Soln 150 Ml Btl PO 06/22/23 08:59 2 mg DAILY RANDALL Administration Baclofen 10 mg 05/23/23 09:00 05/24/23 13:40 Baclofen 10 Mg Tab PO 06/22/23 08:59 10 mg TID RANDALL Administration Bupropion HCl 150 mg 05/23/23 09:00 05/24/23 08:01 Bupropion Sr 150 Mg Tabcr PO 06/22/23 08:59 150 mg BID RANDALL Administration Duloxetine HCl 30 mg 05/23/23 09:00 05/24/23 08:02 Duloxetine Hcl 30 Mg Cap PO 06/22/23 08:59 30 mg QAM RANDALL Administration Duloxetine HCl 60 mg 05/23/23 09:00 05/24/23 08:02 Duloxetine Hcl 60 Mg Cap PO 06/22/23 08:59 60 mg QAM RANDALL Administration Hydromorphone HCl 0.5 mg 05/23/23 07:00 05/24/23 12:33 Hydromorphone Inj 0.5 Mg/0.5 Ml Syr IV 06/06/23 06:59 0.5 mg Q3H PRN Administration Severe Pain (Scale 7, 8, 9,10) Cefepime HCl 2,000 mg/ Syringe 20 mls @ 5 mls/min 05/23/23 14:00 05/24/23 13:45 IV 07/04/23 13:59 5 mls/min Q8H ARNDALL Administration Protocol Vancomycin HCl 1,000 mg/ 270 mls @ 200 mls/hr 05/23/23 14:00 05/24/23 13:33 Sodium Chloride IV 07/04/23 13:59 Infused Q12H RANDALL Infusion Melatonin 3 mg 05/23/23 06:04 05/24/23 04:40 Melatonin 3 Mg Tab PO 06/22/23 06:03 3 mg HS PRN Administration Insomnia Meloxicam 7.5 mg 05/23/23 06:04 05/23/23 08:08 Meloxicam 7.5 Mg Tab PO 06/22/23 06:03 7.5 mg DAILY PRN Administration pain (not relieved by Tylenol) Propranolol HCl 60 mg 05/23/23 09:00 05/24/23 08:05 Propranolol Hcl 60 Mg [place] PO 06/22/23 08:59 60 mg DAILY RANDALL Administration Past Medical History Medical History (Updated 05/24/23 @ 16:35 by Jada Leonard DO) Neurogenic claudication due to lumbar spinal stenosis Epidural abscess, L2-L5 Osteomyelitis of lumbar vertebra Tear of medial meniscus of left knee Tear of lateral meniscus of left knee Left knee DJD Wrist arthropathy Left scapholunate ligament tear Migraines Bilateral nonpulsatile tinnitus Depression with anxiety Chronic wrist pain Exercise / Class Metabolic Activity II 4-5 Yardwork/Stairs/Walk up hill Past Family History Family History Mother Brain cancer Father Diabetes Denies family history of Ovarian cancer Prostate cancer Myocardial infarction Breast cancer Colorectal cancer Past Surgical History Surgical History History of arthroscopy of left knee 11/03/22 ([place]) Left knee scope, PMM, subtotal lateral meniscectomy, chondroplasty and debridement of calcinosis Hx of colonoscopy Hx of tonsillectomy S/P ACL repair Left S/P ACL repair Right Social History Smoking Status: Never smoker Do You Dip or Chew Tobacco: No Hx Alcohol Use: No alcohol intake frequency: holidays/special occasions only Hx Substance Use: No substance use type: does not use Physical Exam Vital Signs Last Vital Signs Temp 36.4 C L 05/24/23 13:41 Pulse 53 L 05/24/23 13:41 Resp 16 05/24/23 13:41 BP 108/65 05/24/23 13:41 Pulse Ox 96 05/24/23 13:41 O2 Del Method Room Air 05/24/23 13:41 O2 Flow Rate 2 05/24/23 08:04 Testing Laboratory Results 05/24/23 05:34 05/24/23 05:34 Electrocardiogram 10/28/22 Normal sinus rhythm Normal ECG No previous ECGs available updated EKG pending
--- NOTE | 2023-05-24 16:58 | Hospitalist Progress Note ---
Date of Service May 24, 2023 Assessment & Plan (1) Osteomyelitis of lumbar vertebra: (2) Epidural abscess, L2-L5: (3) Depression with anxiety: Plan Discovertebral osteomyelitis at L4-5 with small ventral epidural phlegmon/abscess- Consult with Dr. Hinton from orthopedic spine surgery at [place] suggest placing patient on vancomycin IV and cefepime IV and admission at [facility] Orthopedic spine surgery Dr. Johnson has been consulted, and reportedly will be available on 05/24 Overall patient is relatively comfortable after pain regimen Acetaminophen 650 mg by mouth every 6 hours as needed for mild pain or fever [place] 5/325, 1 every 6 hours as needed for moderate pain Dilaudid 0.5 mg IV every 3 hours as needed for severe pain Patient did receive a single dose of dexamethasone 10 mg IV from the ED, will not continue Baclofen 10 mg p.o. 3 times daily as per ortho he is scheduled for lumbar spine decompression tomorrow NPO after midnight Depression with anxiety- Continue aripiprazole, bupropion, duloxetine, lorazepam History of migraines- Continue propranolol extended release, riboflavin and rizatriptan as needed Admission and Anticipated Discharge Date Admission Date: May 24, 2023 Subjective Patient is continued to have significant back and leg pain. He does feel his leg symptoms have improved over the past 24 hours 05/23 reports back pain with movement Review of Systems Review of Systems: The patient denies chest pain, palpitations, shortness of breath, dyspnea on exertion, cough, lower extremity swelling, sore throat, fevers, chills, sweats, weight change, fatigue, nausea, vomiting, diarrhea , constipation, abdominal pain, pelvic pain, blood in urine or stool, dysuria, urinary frequency or urgency, lightheadedness, dizziness, headache, memory loss, loss of consciousness, rash, abnormal bruising or bleeding, focal or generalized weakness, numbness or tingling in arms, generalized arthralgias or myalgias, neck pain, or night sweats. The review of systems is otherwise negative other than for that already noted above, and at least 10 systems have been reviewed. Physical Exam Physical Exam: head atraumatic neck supple chest CTA heart S1S2 regular abdomen soft, nt, nd , bs present extremities no edema Results & Data Results & Data Vital Signs (Past 12 Hours) Vital Signs Temp Pulse Resp BP Pulse Ox O2 Del Method O2 Flow Rate 05/24/23 13:41 36.4 C L 53 L 16 108/65 96 Room Air 05/24/23 08:04 63 96 Nasal Cannula 2 05/24/23 06:57 36.4 C L 59 L 16 108/65 97 Nasal Cannula 2 PG Care Time/CCT Total # of Minutes Spent Total Time Spent with Patient: Total time spent is greater than 50% in coordination of care (as documented) at patient's floor/unit and/or counseling patient: Coding Level of Care Code 24394 SUB INP/OBS CARE 2/35MIN Diagnoses Osteomyelitis of lumbar vertebra M46.26 Epidural abscess, L2-L5 G06.1 Depression with anxiety F41.8
[2023-05-24] MEDS: CALCIUM CARBONATE 500 MG CHEWABLE TAB PO PRN (21:28)
[2023-05-24] MEDS: POLYETHYLENE (MIRALAX) 17 GM PACK PO PRN (21:28)
[2023-05-25 06:26] LABS: Albumin Level 3.8 gm/dl (3.4-5.0); BUN Creatinine Ratio 13.5 (10-20); Calcium 8.7 mg/dl (8.6-10.3); Creatinine Clr Calc Pharmacy 80.7 ml/min; Est GFR (African American) 74.5 ml/min; Est GFR (Non-African American) 64.2 ml/min; Phosphorus 3.1 mg/dl (2.5-4.9); Potassium 4.7 mmol/L (3.5-5.1)
[2023-05-25 07:31] LABS: Basophils # (auto) 0.06 K/uL (0.00-0.20); Eosinophils # (auto) 0.19 K/uL (0.00-0.50); Eosinophils % (auto) 3.1 %; Hemoglobin 13.9 g/dl (14.0-18.0); Immature Granulocytes # (auto) 0.07 K/uL (0.01-0.20); Immature Granulocytes % (auto) 1.1 %; Lymphocytes # (auto) 2.25 K/uL (1.20-3.40); Lymphocytes % (auto) 36.2 %; Mean Corpuscular Hemoglobin 30.7 pg (25.0-34.0); Mean Corpuscular Hgb Conc 32.3 g/dL (32.0-36.0); Mean Corpuscular Volume 94.9 fL (80.0-100.0); Mean Platelet Volume 9.9 fL (9.4-12.4); Monocytes # (auto) 0.81 K/uL (0.11-0.59); Neutrophils # (auto) 2.84 K/uL (1.40-6.50); Neutrophils % (auto) 45.6 %; Platelet Count 171 K/uL (130-400); RDW Coefficient of Variation 13.2 % (11.5-14.5); RDW Standard Deviation 45.6 fL (36.4-46.3); Red Blood Count 4.53 M/uL (4.70-6.10); White Blood Count 6.22 K/ul (4.8-10.8)
--- NOTE | 2023-05-25 11:11 | Pharmacy Report ---
Pharmacy PK ABX Note - Date of Service May 25, 2023 - Assessment and Plan Assessment 52 year old M receiving Vancomycin and Cefepime for treatment of vertebral osteomyelitis. Antibiotics per ortho spine surgery at [place]. * Day #3 of antimicrobial therapy. * Afebrile, no leukocytosis, renal function relatively stable * No cultures. * Plan is for OR today for spinal decompression/fusion Plan Vancomycin * Current regimen: 1000 mg IV every 12 hours * Random level obtained 05/25/23 resulted as 11.2 mcg/mL. This is predicted to achieve target AUC/JODI of 400-600 mg/L.hr. However, will adjust dose today to increase likelihood of target attainment. * Change to 1250 mg IV every 12 hours * Predicted AUC at steady state: 541 mg/L.hr * Will repeat level in the next 48-72 hours if therapy is continued and/or change in patient clinical status Cefepime * 2 g IV q8h - appropriately dosed based on indication/renal function Pharmacy will continue to follow and will adjust dose/frequency as necessary. Thank you. Pharmacy has transitioned to AUC monitoring for vancomycin. AUC/JODI is the preferred PK/PD target and is associated with decreased risk of nephrotoxicity compared to traditional trough targets.
[2023-05-25] MEDS: VANCOMYCIN HCL 1,250 MG in SODIUM CHLORIDE 0.9% 250 ML IV SCH (12:43)
[2023-05-25] MEDS ORDERED: DEXAMETHASONE SOD INJ 4 MG/ML VIAL ONE (13:59)
[2023-05-25] MEDS ORDERED: ROCURONIUM BROMIDE 10 MG/ML 5 ML VIAL IV ONE ×2 (13:59→15:50)
[2023-05-25] MEDS ORDERED: ONDANSETRON INJ 2 MG/ML 2 ML VIAL ONE (13:59)
[2023-05-25] MEDS: LACTATED RINGER'S 1,000 ML IV SCH ×3 (13:59→22:35)
[2023-05-25] MEDS ORDERED: PROPOFOL IV EMULSION 10 MG/ML 20 ML VIAL IV ONE (13:59)
[2023-05-25] MEDS ORDERED: LIDOCAINE 2% 2 ML VIAL/AMP(20MG/ML) INFIL ONE (13:59)
[2023-05-25] MEDS ORDERED: MIDAZOLAM HCL 1 MG/ML 2ML VIAL ONE ×2 (13:59→15:04)
[2023-05-25] MEDS ORDERED: fentaNYL citrate PF 100 MCG/2 ML VIAL ONE (14:00)
[2023-05-25] MEDS ORDERED: SUGAMMADEX SODIUM 200 MG/2 ML VIAL IV ONE (14:00)
[2023-05-25] MEDS ORDERED: ePHEDrine sulfate 50 MG/ML AMP IV PRN (14:07)
[2023-05-25] MEDS ORDERED: HYDROmorphone INJ 2 MG/ML SYR/VIAL IV PRN (14:07)
[2023-05-25] MEDS ORDERED: ATROPINE SULFATE 0.1 MG/ML 10ML SYR IV PRN (14:07)
[2023-05-25] MEDS ORDERED: ONDANSETRON INJ 2 MG/ML 2 ML VIAL IV PRN ×2 (14:07→18:54)
--- NOTE | 2023-05-25 14:40 | History & Physical Bridge Note ---
Date of Service May 25, 2023 History & Physical Bridge Note I have examined the patient, reviewed the History & Physical and in the interval since the performance of the History & Physical I have noted the following changes of clinical significance: no changes noted Lumbar decompression and fusion L4-L5 L5-S1
[2023-05-25] MEDS ORDERED: HYDROmorphone INJ 2 MG/ML SYR/VIAL ONE (15:46)
[2023-05-25] MEDS: BUPIVACAINE/EPINEPHRINE 0.5% MPF 1:200,000 30 ML VIAL ONE (16:43)
[2023-05-25] MEDS: ceFAZolin 330 MG/ML 1 GM VIAL ONE (16:43)
--- NOTE | 2023-05-25 17:37 | Hospitalist Progress Note ---
Date of Service May 25, 2023 Assessment & Plan (1) Osteomyelitis of lumbar vertebra: (2) Epidural abscess, L2-L5: (3) Depression with anxiety: Plan Discovertebral osteomyelitis at L4-5 with small ventral epidural phlegmon/abscess- Consult with Dr. Hinton from orthopedic spine surgery at [place] suggest placing patient on vancomycin IV and cefepime IV and admission at [facility] Orthopedic spine surgery Dr. Johnson has been consulted, and reportedly will be available on 05/24 Overall patient is relatively comfortable after pain regimen Acetaminophen 650 mg by mouth every 6 hours as needed for mild pain or fever [place] 5/325, 1 every 6 hours as needed for moderate pain Dilaudid 0.5 mg IV every 3 hours as needed for severe pain Patient did receive a single dose of dexamethasone 10 mg IV from the ED, will not continue Baclofen 10 mg p.o. 3 times daily as per ortho he is scheduled for lumbar spine decompression tomorrow NPO after midnight 05/24 plan is for surgery today , pain is controlled, continue IV antibiotics Depression with anxiety- Continue aripiprazole, bupropion, duloxetine, lorazepam History of migraines- Continue propranolol extended release, riboflavin and rizatriptan as needed Admission and Anticipated Discharge Date Admission Date: May 24, 2023 Subjective Patient is continued to have significant back and leg pain. He does feel his leg symptoms have improved over the past 24 hours 05/23 reports back pain with movement Review of Systems Review of Systems: The patient denies chest pain, palpitations, shortness of breath, dyspnea on exertion, cough, lower extremity swelling, sore throat, fevers, chills, sweats, weight change, fatigue, nausea, vomiting, diarrhea , constipation, abdominal pain, pelvic pain, blood in urine or stool, dysuria, urinary frequency or urgency, lightheadedness, dizziness, headache, memory loss, loss of consciousness, rash, abnormal bruising or bleeding, focal or generalized weakness, numbness or tingling in arms, generalized arthralgias or myalgias, neck pain, or night sweats. The review of systems is otherwise negative other than for that already noted above, and at least 10 systems have been reviewed. Physical Exam Physical Exam: head atraumatic neck supple chest CTA heart S1S2 regular abdomen soft, nt, nd , bs present extremities no edema Results & Data Results & Data Vital Signs (Past 12 Hours) Vital Signs Temp Pulse Pulse Resp BP Pulse Ox O2 Del Method 05/25/23 13:48 36.9 C 65 20 138/96 97 Room Air 05/25/23 08:16 36.6 C 60 16 144/88 H 94 Room Air PG Care Time/CCT Total # of Minutes Spent Total Time Spent with Patient: Total time spent is greater than 50% in coordination of care (as documented) at patient's floor/unit and/or counseling patient: Coding Level of Care Code 82513 SUB INP/OBS CARE 2/35MIN Diagnoses Osteomyelitis of lumbar vertebra M46.26 Epidural abscess, L2-L5 G06.1 Depression with anxiety F41.8
--- NOTE | 2023-05-25 18:12 | Operative Report ---
Post Operative Report Pre & Post Diagnosis Operation Date: 05/25/23 12:45 Pre-Op Diagnosis: Neurogenic claudication due to lumbar spinal stenosis Rule out discitis/epidural abscess Post-Op Diagnosis: Same I identified the patient and participated in the time-out.: Yes Procedure Operation Date: 05/25/23 12:45 Actual Procedures #1 lumbar decompression bilaterally facetectomies and foraminotomies L4-5 L5-S1. #2 posterior spinal fusion L4-5 L5-S1. #3 placement of posterior instrumentation L4-S1. #4 interbody fusion L4-L5 L5-S1. #5 placement Spira 13 x 26 mm at L4-5 and 11 x 26 mm x 2 at L5-S1. #6 placement locally harvested morselized autograft and posterior gutters. #7 placement infuse collagen sponge combined with Koros bone graft in the posterior lateral gutters and Morpheus bone graft interbody space. Surgeon Thai Johnson, DO [employer] None Estimated Blood Loss 700 Findings Consistent with Post-Op Diagnosis Specimens None Indications This is a 52-year-old male who presents with severe back and bilateral leg pain failing course of nonoperative care is here for surgical invention. Description of Procedure Patient is met with identified informed consent obtained. Patient was then taken to the operative suite underwent patient placed in a prone position the [place] table top [place] frame. All bony promises well-padded eyes inspected to ensure no external pressure placed upon the. This point the lumbar spine was prepped and draped in a sterile fashion. Sharp dissection with the assistance of Bovie cautery from down to and exposing the lamina transverse processes of L4-L5 and the sacral ala bilaterally. From caudal to cephalad fashion complete laminectomy L5 on L4 was performed. Bilateral medial facetectomies and foraminotomies were performed at L4-L5 and L5-S1 bilaterally. I explored the epidural space and finding no evidence of fluid collection or abscess. Pedicle screws then placed in L4-L5 and S1 levels bilaterally with assistance of fluoroscopy but was as placed. By way of transforaminal approach the left discectomy of L5-S1 was performed endplates curetted to subcortical bleeding bone and a 11 x 26 mm Spira cage with Morpheus bone graft tapped in position.. And then proceeded to the right L5-S1 transforaminal region completed the discectomy endplates guided to subcortically and bone and a second 11 x 26 mm Spira cage with Morpheus bone graft tapped in position. Again no evidence of abnormal fluid collection or infection noted. Then proceeded L4-[address] transforaminal approach on the left complete discectomy performed endplates guided to subcortically bone and a 13 x 26 mm Spira cage filled Morpheus bone g raft tapped in position. The rods then locked in final position bilaterally. The transverse processes of L4-L5 and the sacral ala burred to subcortical mean bone. Infuse collagen sponge, with Koros bone graft and local autograft placed in the posterior gutters. 15 round JOSE drain inserted. The incision was then closed with 1 Vicryl the fascia 2-0 Vicryl subcutaneously and 4 Monocryl for final skin closure. Steri-Strips sterile dressing placed. Patient awakened taken to PACU in stable condition. Please note spinal cord monitoring was utilized at the procedure no changes noted. I attest to the content of the Intraoperative Record and any orders documented therein. Any exceptions are noted below.
[2023-05-25] MEDS: fentaNYL citrate PF 100 MCG/2 ML VIAL IV PRN (18:48)
[2023-05-25] MEDS ORDERED: DO NOT ADMINISTER PNEUMOCOCCAL VACCINE PRN (18:54)
[2023-05-25] MEDS ORDERED: FAMOTIDINE 20 MG TAB PO PRN (18:54)
[2023-05-25] MEDS ORDERED: DO NOT ADMINISTER FLU VACCINE PRN (18:54)
[2023-05-25] MEDS ORDERED: METOCLOPRAMIDE HCL INJ 5 MG/ML 2 ML VIAL IV PRN (18:54)
[2023-05-25] MEDS ORDERED: NALOXONE HCL 0.4 MG/1 ML VIAL/CARP IV PRN (18:54)
[2023-05-25] MEDS ORDERED: ONDANSETRON 4 MG OD TAB PO PRN (18:54)
[2023-05-25] MEDS ORDERED: LORazepam 0.5 MG in SYRINGE 0.25 ML IV PRN (18:54)
[2023-05-25] MEDS ORDERED: PROMETHAZINE HCL 12.5 MG in SODIUM CHLORIDE 0.9% 50 ML IV PRN (18:54)
[2023-05-25] MEDS ORDERED: HYDROmorphone INJ 0.5 MG/0.5 ML SYR IV PRN (18:54)
[2023-05-25] MEDS ORDERED: diphenhydrAMINE Capsule 25 MG CAP PO PRN (18:54)
[2023-05-25] MEDS ORDERED: ACETAMINOPHEN 500 MG TAB PO PRN (18:54)
--- NOTE | 2023-05-25 19:11 | Anesthesiology Progress Note ---
Date of Service May 25, 2023 Anesthesia Post Procedure Vital Signs Vital Signs: Temp Pulse Pulse Resp BP BP Pulse Ox 05/25/23 18:50 75 14 138/87 97 05/25/23 18:40 76 18 137/72 98 05/25/23 18:30 75 16 131/89 97 05/25/23 18:21 97.0 F L 78 16 141/92 H 97 05/25/23 13:48 98.4 F 65 20 138/96 97 05/25/23 08:16 97.9 F 60 16 144/88 H 94 05/24/23 21:15 05/24/23 20:30 97.7 F 62 16 115/67 96 O2 Del Method O2 Flow Rate 05/25/23 18:50 Nasal Cannula 3 05/25/23 18:40 Oxymask 4 05/25/23 18:30 Oxymask 4 05/25/23 18:21 Oxymask 6 05/25/23 13:48 Room Air 05/25/23 08:16 Room Air 05/24/23 21:15 Room Air 05/24/23 20:30 Room Air Pain Intensity Lower Back: Pain Intensity: 6 Transfer of Care Handoff Completed per policy Notes Mental Status: alert / awake / arousable and participated in evaluation Patient Amnestic to Procedure: Yes Nausea / Vomiting: adequately controlled Pain: adequately controlled Airway Patency, RR, SpO2: stable & adequate BP & HR: stable & adequate Hydration State: stable & adequate Anesthetic Complications: no major complications apparent and Pt Satisfied with anesthetic care
--- NOTE | 2023-05-25 21:35 | Fluoroscopy Report ---
FL lumbar spine 2-3V CLINICAL HISTORY: L4-L5 L5-S1 DECOMPRESSION AND FUSION TECHNIQUE: 2 views were obtained with the C-arm in the OR with the above procedure. Total fluoroscopy time was 27.4 seconds. Radiation dose was 23.08 mGy. Comparison: Comparison is made to MRI lumbar spine 05/23/2023 FINDINGS/IMPRESSION: Intraoperative images were obtained of L4-S1 decompression and fusion. Please correlate with intraoperative fluoroscopy and operative report. ACT 112: Negative or not required by law. Electronically signed by: Vitaly Olson M.D. 05/25/2023 9:33 PM
[2023-05-25] MEDS: HYDROmorphone INJ 1 MG/ML SYRINGE IV PRN (22:03)
[2023-05-25] MEDS: DOCUSATE SODIUM/SENNA 50/8.6MG TAB PO SCH (22:03)
[2023-05-25] MEDS: ACETAMINOPHEN 1,000 MG/100 ML VIAL IV PRN (22:05)
[2023-05-26] MEDS: oxyCODONE HCL IR 5 MG TAB (IMMEDIATE RELEASE) PO PRN (00:23)
[2023-05-26] MEDS: ceFAZolin 2000MG 2,000 MG/15 ML SYR IV SCH (00:34)
[2023-05-26] MEDS: FLOSEAL HEMOSTATIC MATRIX 10ML TOP ONE (00:58)
[2023-05-26] MEDS: COUGH DROP (SUGAR FREE) LOZ 24 LOZ/1 BOX BUCCAL ONE (02:11)
[2023-05-26] MEDS: POLYETHYLENE (MIRALAX) 17 GM PACK PO SCH (05:23)
[2023-05-26] MEDS: traMADol HCL 50 MG TABLET PO PRN (05:30)
[2023-05-26] MEDS: LORazepam 0.5 MG TAB PO PRN (06:08)
[2023-05-26 06:41] LABS: Basophils # (auto) 0.02 K/uL (0.00-0.20); Basophils % (auto) 0.2 %; Hematocrit (blood only) 36.5 % (42.0-52.0); Hemoglobin 11.9 g/dl (14.0-18.0); Immature Granulocytes # (auto) 0.06 K/uL (0.01-0.20); Immature Granulocytes % (auto) 0.6 %; Lymphocytes # (auto) 0.66 K/uL (1.20-3.40); Lymphocytes % (auto) 6.2 %; Mean Corpuscular Hemoglobin 30.4 pg (25.0-34.0); Mean Corpuscular Hgb Conc 32.6 g/dL (32.0-36.0); Mean Corpuscular Volume 93.4 fL (80.0-100.0); Monocytes # (auto) 1.13 K/uL (0.11-0.59); Monocytes % (auto) 10.6 %; Neutrophils # (auto) 8.82 K/uL (1.40-6.50); Neutrophils % (auto) 82.4 %; Platelet Count 159 K/uL (130-400); RDW Coefficient of Variation 12.7 % (11.5-14.5); RDW Standard Deviation 43.2 fL (36.4-46.3); Red Blood Count 3.91 M/uL (4.70-6.10); White Blood Count 10.69 K/ul (4.8-10.8)
[2023-05-26 07:11] LABS: BUN Creatinine Ratio 16.3 (10-20); Calcium 8.4 mg/dl (8.6-10.3); Creatinine Clr Calc Pharmacy 97.7 ml/min; Est GFR (African American) 93.9 ml/min; Potassium 4.5 mmol/L (3.5-5.1)
[2023-05-26] MEDS: hydrOXYzine HCl 25 MG TAB PO PRN (07:23)
[2023-05-26] MEDS: diazePAM 5 MG TABLET PO PRN ×2 (08:17→16:01)
[2023-05-26] MEDS: dexAMETHasone 6 MG in SYRINGE 0 ML IV SCH (09:03)
[2023-05-26] MEDS: DOCUSATE SODIUM/SENNA 50/8.6MG TAB PO SCH (09:15)
--- NOTE | 2023-05-26 12:36 | Hospitalist Progress Note ---
Date of Service May 26, 2023 Assessment & Plan (1) Osteomyelitis of lumbar vertebra: (2) Epidural abscess, L2-L5: (3) Depression with anxiety: Plan Discovertebral osteomyelitis at L4-5 with small ventral epidural phlegmon/abscess- Consult with Dr. Hinton from orthopedic spine surgery at [place] suggest placing patient on vancomycin IV and cefepime IV and admission at [facility] Orthopedic spine surgery Dr. Johnson has been consulted, and reportedly will be available on 05/24 Overall patient is relatively comfortable after pain regimen Acetaminophen 650 mg by mouth every 6 hours as needed for mild pain or fever [place] 5/325, 1 every 6 hours as needed for moderate pain Dilaudid 0.5 mg IV every 3 hours as needed for severe pain Patient did receive a single dose of dexamethasone 10 mg IV from the ED, will not continue Baclofen 10 mg p.o. 3 times daily as per ortho he is scheduled for lumbar spine decompression tomorrow NPO after midnight 05/24 plan is for surgery today , pain is controlled, continue IV antibiotics 05/25 post/op day 1 #1 lumbar decompression bilaterally facetectomies and foraminotomies L4-5 L5-S1. #2 posterior spinal fusion L4-5 L5-S1. #3 placement of posterior instrumentation L4-S1. #4 interbody fusion L4-L5 L5-S1. #5 placement Spira 13 x 26 mm at L4-5 and 11 x 26 mm x 2 at L5-S1. #6 placement locally harvested morselized autograft and posterior gutters. #7 placement infuse collagen sponge combined with Koros bone graft in the posterior lateral gutters and Morpheus bone graft interbody space. reports severe muscle spasm, diazepam ordered continue pain control Depression with anxiety- Continue aripiprazole, bupropion, duloxetine, lorazepam History of migraines- Continue propranolol extended release, riboflavin and rizatriptan as needed Admission and Anticipated Discharge Date Admission Date: May 24, 2023 Subjective Patient is continued to have significant back and leg pain. He does feel his leg symptoms have improved over the past 24 hours 05/23 reports back pain with movement 05/24 s/p back surgery 05/25 reports severe muscles spasms Review of Systems 2 Review of Systems: The patient denies chest pain, palpitations, shortness of breath, dyspnea on exertion, cough, lower extremity swelling, sore throat, fevers, chills, sweats, weight change, fatigue, nausea, vomiting, diarrhea , constipation, abdominal pain, pelvic pain, blood in urine or stool, dysuria, urinary frequency or urgency, lightheadedness, dizziness, headache, memory loss, loss of consciousness, rash, abnormal bruising or bleeding, focal or generalized weakness, numbness or tingling in arms, generalized arthralgias or myalgias, neck pain, or night sweats. The review of systems is otherwise negative other than for that already noted above, and at least 10 systems have been reviewed. 4/10 reports severe muscles spasms Physical Exam Physical Exam: head atraumatic neck supple chest CTA heart S1S2 regular abdomen soft, nt, nd , bs present extremities no edema Results & Data Results & Data Vital Signs (Past 12 Hours) Vital Signs Temp Pulse Resp BP BP Pulse Ox O2 Del Method 05/26/23 11:19 36.7 C 91 H 18 135/88 92 Room Air 05/26/23 09:08 70 136/80 94 Room Air 05/26/23 07:13 36.8 C 75 16 104/65 98 Nasal Cannula 05/26/23 03:03 36.6 C 89 18 101/74 93 Room Air O2 Flow Rate 05/26/23 11:19 05/26/23 09:08 05/26/23 07:13 2 05/26/23 03:03 PG Care Time/CCT Total # of Minutes Spent Total Time Spent with Patient: Total time spent is greater than 50% in coordination of care (as documented) at patient's floor/unit and/or counseling patient: Coding Level of Care Code 13161 SUB INP/OBS CARE 2/35MIN Diagnoses Osteomyelitis of lumbar vertebra M46.26 Epidural abscess, L2-L5 G06.1 Depression with anxiety F41.8
--- NOTE | 2023-05-26 13:19 | Orthopedic Progress Note ---
Date of Service May 26, 2023 Assessment & Plan (1) Neurogenic claudication due to lumbar spinal stenosis: Plan: Max is postoperative day 1 status post L4-S1 decompression and instrumented fusion. Will encourage ambulation today. Continue with physical therapy. Maintain JOSE drain. Continue with pain control. DVT prophylaxis is in the form teds and SCDs. Anticipate discharge home Wednesday. Admission and Anticipated Discharge Date Admission Date: May 24, 2023 Subjective Max is postoperative day 1 status post L4-S1 decompression and instrumented fusion. Has complaints of spasms involving his cervical and lumbar spine this morning. Valium has been ordered. JOSE drain output last shift was 100 cc. Radicular leg pain greatly improved Review of Systems Review of Systems: All systems reviewed & are unremarkable except as noted in HPI & below Physical Exam Physical Exam: He is laying in bed on his side Alert and oriented x 3 Lumbar dressing is clean dry intact with functioning JOSE drain Strength intact bilateral lower extremities Results & Data Vital Signs (Past 12 Hours) Vital Signs Temp Pulse Resp BP BP Pulse Ox O2 Del Method 05/26/23 11:19 36.7 C 91 H 18 135/88 92 Room Air 05/26/23 09:08 70 136/80 94 Room Air 05/26/23 07:13 36.8 C 75 16 104/65 98 Nasal Cannula 05/26/23 03:03 36.6 C 89 18 101/74 93 Room Air O2 Flow Rate 05/26/23 11:19 05/26/23 09:08 05/26/23 07:13 2 05/26/23 03:03
[2023-05-26] MEDS: ALUMINUM/MAGNESIUM SUSP 30 ML UDC PO PRN (21:17)
--- NOTE | 2023-05-27 10:47 | Orthopedic Progress Note ---
Date of Service May 27, 2023 Assessment & Plan (1) Neurogenic claudication due to lumbar spinal stenosis: Plan: At this time we will continue physical therapy monitor his JOSE output anticipate discharge home tomorrow. Admission and Anticipated Discharge Date Admission Date: May 24, 2023 Subjective Back pain controlled leg symptoms improved Physical Exam Physical Exam: Patient has good strength testing. Is comfortable. He has been ambulating without difficulty. Results & Data Vital Signs (Past 12 Hours) Vital Signs Temp Pulse Resp BP Pulse Ox O2 Del Method 05/27/23 06:23 36.7 C 62 16 118/71 96 Room Air 05/26/23 23:49 36.6 C 63 16 109/61 94 Room Air
--- NOTE | 2023-05-27 16:26 | Hospitalist Progress Note ---
Date of Service May 27, 2023 Assessment & Plan (1) Osteomyelitis of lumbar vertebra: Plan: no signs of infection during surgery (2) Epidural abscess, L2-L5: Plan: no abscess (3) Depression with anxiety: Plan Discovertebral osteomyelitis at L4-5 with small ventral epidural phlegmon/abscess- Consult with Dr. Hinton from orthopedic spine surgery at [place] suggest placing patient on vancomycin IV and cefepime IV and admission at [facility] Orthopedic spine surgery Dr. Johnson has been consulted, and reportedly will be available on 05/24 Overall patient is relatively comfortable after pain regimen Acetaminophen 650 mg by mouth every 6 hours as needed for mild pain or fever [place] 5/325, 1 every 6 hours as needed for moderate pain Dilaudid 0.5 mg IV every 3 hours as needed for severe pain Patient did receive a single dose of dexamethasone 10 mg IV from the ED, will not continue Baclofen 10 mg p.o. 3 times daily as per ortho he is scheduled for lumbar spine decompression tomorrow NPO after midnight 05/24 plan is for surgery today , pain is controlled, continue IV antibiotics 05/25 post/op day 1 #1 lumbar decompression bilaterally facetectomies and foraminotomies L4-5 L5-S1. #2 posterior spinal fusion L4-5 L5-S1. #3 placement of posterior instrumentation L4-S1. #4 interbody fusion L4-L5 L5-S1. #5 placement Spira 13 x 26 mm at L4-5 and 11 x 26 mm x 2 at L5-S1. #6 placement locally harvested morselized autograft and posterior gutters. #7 placement infuse collagen sponge combined with Koros bone graft in the posterior lateral gutters and Morpheus bone graft interbody space. reports severe muscle spasm, diazepam ordered continue pain control 05/26 reports feeling well, pain is under controlled, ambulating anticipate discharge home tomorrow Depression with anxiety- Continue aripiprazole, bupropion, duloxetine, lorazepam History of migraines- Continue propranolol extended release, riboflavin and rizatriptan as needed Admission and Anticipated Discharge Date Admission Date: May 24, 2023 Subjective Back pain controlled leg symptoms improved, significant spasm , eating lunch, was able to ambulate Review of Systems Review of Systems: The patient denies chest pain, palpitations, shortness of breath, dyspnea on exertion, cough, lower extremity swelling, sore throat, fevers, chills, sweats, weight change, fatigue, nausea, vomiting, diarrhea , constipation, abdominal pain, pelvic pain, blood in urine or stool, dysuria, urinary frequency or urgency, lightheadedness, dizziness, headache, memory loss, loss of consciousness, rash, abnormal bruising or bleeding, focal or generalized weakness, numbness or tingling in arms, generalized arthralgias or myalgias, neck pain, or night sweats. The review of systems is otherwise negative other than for that already noted above, and at least 10 systems have been reviewed. 4/10 reports severe muscles spasms Physical Exam Physical Exam: head atraumatic neck supple chest CTA heart S1S2 regular abdomen soft, nt, nd , bs present has drain in place extremities no edema Results & Data Results & Data Vital Signs (Past 12 Hours) Vital Signs Temp Pulse Resp BP Pulse Ox O2 Del Method 05/27/23 15:13 36.6 C 63 18 130/86 96 Room Air 05/27/23 06:23 36.7 C 62 16 118/71 96 Room Air PG Care Time/CCT Total # of Minutes Spent Total Time Spent with Patient: Total time spent is greater than 50% in coordination of care (as documented) at patient's floor/unit and/or counseling patient: Coding Level of Care Code 83788 SUB INP/OBS CARE 2/35MIN Diagnoses Osteomyelitis of lumbar vertebra M46.26 Epidural abscess, L2-L5 G06.1 Depression with anxiety F41.8
[2023-05-27] MEDS: MAGNESIUM HYDROXIDE SUSP 30 ML UDC PO PRN (20:10)
--- NOTE | 2023-05-27 22:35 | Electrocardiogram Report ---
Test Reason : Blood Pressure : / mmHG Vent. Rate : 053 BPM Atrial Rate : 053 BPM P-R Int : 188 ms QRS Dur : 096 ms QT Int : 436 ms P-R-T Axes : 045 -08 013 degrees QTc Int : 409 ms Sinus bradycardia Otherwise normal ECG When compared with ECG of 28-OCT-2022 14:31, No significant change was found Confirmed by Marty Graves ([id number]) on 05/27/2023 10:35:08 PM Referred By: REFERRED SELF Confirmed By:Marty Graves
[2023-05-28] MEDS: bisacodyL 10 MG SUPP PR PRN (04:05)
[2023-05-28] MEDS: SOD PHOSPHATE/SOD BIPHOSPHATE ENEMA 132 ML BTL PR PRN (07:35)
--- NOTE | 2023-05-28 09:01 | XRay Report ---
KUB HISTORY: Abdominal distention. Postop. distention COMPARISON: None. FINDINGS: No renal calculi. No ureteral calculi. No pneumoperitoneum or pneumatosis. L4-S1 posterior decompression fusion with pedicle screws and rods. A surgical drain is noted overlying the laminectom y site. Moderate to large amount of well-formed stool seen throughout the colon. A few mildly dilated gas-filled loops of small bowel within the right side of the abdomen measuring up to 3.5 cm. There i s gas and stool within the colon. Therefore, this favors an ileus. IMPRESSION: 1. A few mildly dilated gas-filled loops of small bowel within the right side of the abdomen. There i s gas and stool within the colon. Therefore, this favors a mild ileus. 2. No evidence for bowel obstruction. 3. Moderate to large amount of well-formed stool seen within the colon. 3. Postoperative changes noted within the lumbar spine. ACT 112: Negative or not required by law. Electronically signed by: Len Mcgarry M.D. 05/28/2023 8:59 AM
[2023-05-28] MEDS: bisacodyL 10 MG SUPP PR STA ×2 (10:12→17:24)
--- NOTE | 2023-05-28 10:47 | Orthopedic Progress Note ---
Date of Service May 28, 2023 Assessment & Plan (1) Neurogenic claudication due to lumbar spinal stenosis: Plan: Max postoperative day 3 status post L4-S1 decompression and fusion. Focus now is aggressive bowel regimen. Ambulate ad greg. Will DC JOSE drain. Or thopedically stable for discharge. Admission and Anticipated Discharge Date Admission Date: May 24, 2023 Subjective Max is postoperative day 3 status post L4-S1 decompression and fusion. Because complaint is some abdominal distention and discomfort. He is passing flatus and has had a small bowel movement. KUB was performed this morning which shows mild ileus. Yesterday in physical therapy Yanely 325 feet. JOSE drain output last shift was 20 cc. Preoperative pain is greatly improved. Review of Systems Review of Systems: All systems reviewed & are unremarkable except as noted in HPI & below Physical Exam Physical Exam: He is standing up walking around in the room Alert and oriented x 3 no acute distress Lumbar dressing is clean dry and intact with functioning JOSE drain Strength intact bilateral lower extremities Results & Data Vital Signs (Past 12 Hours) Vital Signs Temp Pulse Resp BP Pulse Ox O2 Del Method 05/28/23 07:11 36.5 C 54 L 18 121/76 96 Room Air
[2023-05-28] MEDS: LACTULOSE SYRUP 20 GM/30 ML UDC PO SCH (12:52)
--- NOTE | 2023-05-28 13:32 | Hospitalist Progress Note ---
Date of Service May 28, 2023 Assessment & Plan (1) Osteomyelitis of lumbar vertebra: Plan: no signs of infection during surgery (2) Epidural abscess, L2-L5: Plan: no abscess (3) Depression with anxiety: Plan Discovertebral osteomyelitis at L4-5 with small ventral epidural phlegmon/abscess- Consult with Dr. Hinton from orthopedic spine surgery at [place] suggest placing patient on vancomycin IV and cefepime IV and admission at [facility] Orthopedic spine surgery Dr. Johnson has been consulted, and reportedly will be available on 05/24 Overall patient is relatively comfortable after pain regimen Acetaminophen 650 mg by mouth every 6 hours as needed for mild pain or fever [place] 5/325, 1 every 6 hours as needed for moderate pain Dilaudid 0.5 mg IV every 3 hours as needed for severe pain Patient did receive a single dose of dexamethasone 10 mg IV from the ED, will not continue Baclofen 10 mg p.o. 3 times daily as per ortho he is scheduled for lumbar spine decompression tomorrow NPO after midnight 05/24 plan is for surgery today , pain is controlled, continue IV antibiotics 05/25 post/op day 1 #1 lumbar decompression bilaterally facetectomies and foraminotomies L4-5 L5-S1. #2 posterior spinal fusion L4-5 L5-S1. #3 placement of posterior instrumentation L4-S1. #4 interbody fusion L4-L5 L5-S1. #5 placement Spira 13 x 26 mm at L4-5 and 11 x 26 mm x 2 at L5-S1. #6 placement locally harvested morselized autograft and posterior gutters. #7 placement infuse collagen sponge combined with Koros bone graft in the posterior lateral gutters and Morpheus bone graft interbody space. reports severe muscle spasm, diazepam ordered continue pain control 05/26 reports feeling well, pain is under controlled, ambulating anticipate discharge home tomorrow 05/27 small BMs, continue laxatives , drain removed, possible discharge today Depression with anxiety- Continue aripiprazole, bupropion, duloxetine, lorazepam History of migraines- Continue propranolol extended release, riboflavin and rizatriptan as needed Admission and Anticipated Discharge Date Admission Date: may 27 Subjective Max is postoperative day 3 status post L4-S1 decompression and fusion. Because complaint is some abdominal distention and discomfort. He is passing flatus and has had a small bowel movement. KUB was performed this morning which shows mild ileus. Yesterday in physical therapy Yanely 325 feet. JOSE drain output last shif t was 20 cc. Preoperative pain is greatly improved. 4/ small BM, abdomen distended, AXR a lot of stool in the colon, mild ileus, dulcolax supp was given, small BM Review of Systems Review of Systems: The patient denies chest pain, palpitations, shortness of breath, dyspnea on exertion, cough, lower extremity swelling, sore throat, fevers, chills, sweats, weight change, fatigue, nausea, vomiting, diarrhea , constipation, abdominal pain, pelvic pain, blood in urine or stool, dysuria, urinary frequency or urgency, lightheadedness, dizziness, headache, memory loss, loss of consciousness, rash, abnormal bruising or bleeding, focal or generalized weakness, numbness or tingling in arms, generalized arthralgias or myalgias, neck pain, or night sweats. The review of systems is otherwise negative other than for that already noted above, and at least 10 systems have been reviewed. 05/25 reports severe muscles spasms 05/27 back pain is minimal, no abdominal pain, had small BM Physical Exam Physical Exam: head atraumatic neck supple chest CTA heart S1S2 regular abdomen soft, nt, nd , bs present has drain in place extremities no edema Results & Data Results & Data Vital Signs (Past 12 Hours) Vital Signs Temp Pulse Resp BP Pulse Ox O2 Del Method 05/28/23 07:11 36.5 C 54 L 18 121/76 96 Room Air PG Care Time/CCT Total # of Minutes Spent Total Time Spent with Patient: Total time spent is greater than 50% in coordination of care (as documented) at patient's floor/unit and/or counseling patient: Coding Level of Care Code 75651 SUB INP/OBS CARE 2/35MIN Diagnoses Osteomyelitis of lumbar vertebra M46.26 Epidural abscess, L2-L5 G06.1 Depression with anxiety F41.8
--- NOTE | 2023-05-29 08:22 | Orthopedic Progress Note ---
Date of Service May 29, 2023 Assessment & Plan (1) Neurogenic claudication due to lumbar spinal stenosis: Plan: Patient is doing well postoperative day #4. As long as he is medically cleared he is safe for home discharge from our perspective. His discharge instructions are to avoid any full bending at the waist. Needs change dressing once daily till there is no drainage once there is no drainage he may shower. He may use oxycodone or tramadol for pain control. He is to be seen by our office approximately 2 weeks out from his surgery or sooner if he developed any increased redness around the incision increased drainage or uncontrolled pain. Admission and Anticipated Discharge Date Admission Date: May 24, 2023 Subjective Patient was seen bedside in room 410. He is doing much better at this point. He has some tingling in the feet and leg itself but the pain is much better. The pain is well-controlled. Has been tolerating p.o. He has been walking independently. He would like to go home. He denies any other numbness, tingling, or paresthesias. Physical Exam Physical Exam: On exam he is alert and oriented. He moves easily about the exam room. The dressing is clean dry and intact. His strength and sensation are both intact his abdomen soft and nontender his calves are supple and nontender. Results & Data Vital Signs (Past 12 Hours) Vital Signs Temp Pulse Resp BP Pulse Ox O2 Del Method 05/29/23 07:09 36.4 C L 63 16 120/71 96 Room Air 05/28/23 21:35 36.8 C 86 16 133/76 95 Room Air 05/28/23 21:30 Room Air
--- NOTE | 2023-05-29 11:21 | Discharge Summary ---
Date of Service May 29, 2023 Admission HPI Per Admitting Provider The patient is a 52-year-old male with a past medical history including depression with anxiety, arthroscopic left knee surgery, chronic wrist pain and wrist arthropathy, and migraine with aura. Initially had injury to his back in about 1988, and has been conservative in therapy since that time. He had an injury again in 2007, and off-and-on since that time has had discussions regarding replacement of one of his lumbar disks versus fusion of L4-L5. He has been trying to put this off as long as he could, as he has ultimately been recommended by a member of specialist. He reports that he has been thinking more about having a potential surgery, and unfortunately yesterday had an acute aggravation of his chronic low back pain due to the injury on attic steps. At this point he is unable to walk. He reports that he injured his back in his garage which is about half a block from his house, and reports having to crawl back to his house because he could not walk. When he got back to his house, put his 2 dogs away, got in his car and drove to the emergency department Principal Diagnosis lumbar spine stenosis, s/p lumbar spine decompression, fusion Discharge Exam head atraumatic neck supple chest CTA heart S1S2 regular abdomen soft, nt, nd , bs present has drain in place extremities no edema Discharge Data Allergies Allergy/AdvReac Type Severity Reaction Status Date / Time hydrocodone AdvReac Intermediate Irritable Verified 05/22/23 22:43 Consultations 05/23/23 01:25 ED Decision to Admit Stat 05/23/23 03:51 Consult Orthopedic Spine Surgery Routine Procedures Performed Operation Date: 05/25/23 12:45 Actual Procedures p L4-L5, L5-S1 Decompression and Fusion, Spinal Cord Monitoring(Not Applicable) - Thai Johnson, Ordered Studies 05/22/23 19:28 MR lumbar spine wo con Stat 05/23/23 01:05 CT lumbar spine wo con Stat MR lumbar spine w con Stat 05/25/23 10:55 FL lumbar spine 2-3V Routine Hospital Course (1) Osteomyelitis of lumbar vertebra: no signs of infection during surgery (2) Epidural abscess, L2-L5: no abscess (3) Depression with anxiety: Plan Discovertebral osteomyelitis at L4-5 with small ventral epidural phlegmon/abscess- Consult with Dr. Hinton from orthopedic spine surgery at [place] suggest placing patient on vancomycin IV and cefepime IV and admission at [facility] Orthopedic spine surgery Dr. Johnson has been consulted, and reportedly will be available on 05/24 Overall patient is relatively comfortable after pain regimen Acetaminophen 650 mg by mouth every 6 hours as needed for mild pain or fever [place] 5/325, 1 every 6 hours as needed for moderate pain Dilaudid 0.5 mg IV every 3 hours as needed for severe pain Patient did receive a single dose of dexamethasone 10 mg IV from the ED, will not continue Baclofen 10 mg p.o. 3 times daily as per ortho he is scheduled for lumbar spine decompression tomorrow NPO after midnight 05/24 plan is for surgery today , pain is controlled, continue IV antibiotics 05/25 post/op day 1 #1 lumbar decompression bilaterally facetectomies and foraminotomies L4-5 L5-S1. #2 posterior spinal fusion L4-5 L5-S1. #3 placement of posterior instrumentation L4-S1. #4 interbody fusion L4-L5 L5-S1. #5 placement Spira 13 x 26 mm at L4-5 and 11 x 26 mm x 2 at L5-S1. #6 placement locally harvested morselized autograft and posterior gutters. #7 placement infuse collagen sponge combined with Koros bone graft in the posterior lateral gutters and Morpheus bone graft interbody space, no signs of infection, antibiotics discontinued reports severe muscle spasm, diazepam ordered continue pain control 05/26 reports feeling well, pain is under controlled, ambulating anticipate discharge home tomorrow 05/27 small BMs, continue laxatives , drain to be removed, possible discharge today Depression with anxiety- Continue aripiprazole, bupropion, duloxetine, lorazepam 05/28 patient had multiple bowel movements , ambulates without difficulties , drain was removed by ortho , stable for discharge History of migraines- Continue propranolol extended release, riboflavin and rizatriptan as needed Total Time Total Time Spent Total Time Spent (In Minutes): 40 min Discharge Plan Discharge Items Patient Disposition: Home - Self-Care Reason For Visit: INTRACTABLE LOW BACK PAIN, ABNORMAL MRI Discharge Diagnosis: 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 You may walk to your tolerance. It is good exercise for your legs and back. Expect some back and intermittent leg aches and pains. 2. You may perform "counter-top" level activities (make a sandwich, rosalina with a project, etc.). 3. No bending or lifting of more than 10 pounds or back twisting of any nature (roll like a log when turning in bed). 4. You may ride in a car for 20-30 minutes at a time. No driving until after your first visit with your doctor. 5. Frequent changes of position and restricting sitting to 30 minutes at a time will help limit the amount of back spasms and stiffness you may experience. 6. You may discontinue the use of ambulatory aids (cane, crutches, etc.) once your strength and confidence allow. 7. You may digital marketing manager the shower and let water strike your incision when you arrive home at least once daily. Do not take a tub bath, sit in a hot tub or go into a swimming pool until after your first recheck in the office. SPECIAL CARE INSTRUCTIONS: VERY IMPORTANT TO READ AND REVIEW A. Your surgical incision has been closed with a cosmetic suture under the skin that will dissolve in about 6 weeks. In 14 days, you can use a pair of clean scissors and cut the suture that is left outside of the skin at the ends of your incision. 1. The small skin tapes can be removed 7 days after surgery if they have not fallen off by that point. 2. You may keep the wound open to air as much as possible to promote healing after post-op day number 5 unless told otherwise by your doctor. 3. If you think the wound looks like it is becoming infected (redness or worsening drainage) and/or you are experiencing fever, chill or worsening back pain and muscle spasms, contact the office so that we may evaluate you as soon as possible. B. Complications are uncommon, but please contact us if you have any signs or symptoms of: 1. wound infection (fever higher than 102.5 degrees F, redness, separation of wound, drainage, or increasing pain from the incision) 2. blood clots in legs (pain, swelling, redness and warmth in legs) 3. urinary tract infection (fever higher than 102.5 degrees F, burning upon urination or increased frequency of urination) 4. nerve problems (inability to walk on your toes or heels, numbness, loss of bowel or bladder control) 5. any other symptoms that concern you C. Please call the office at if you have any concerns or questions about your operation or recovery. D. No smoking! Smoking drastically decreases the chance of a solid fusion. E. Do not take any anti-inflammatory medications (Indocin, Advil, Motrin, Aspirin, Naprosyn, etc.) as these may inhibit the chance of a solid fusion. Tylenol is okay to take for pain. MANAGING PAIN AFTER SPINAL SURGERY 1. Narcotic medication is intended for short-term use and will be provided for surgical pain. Surgical pain usually lasts for a period of 4-6 weeks. Narcotic medication includes Percocet, Vicodin, Darvocet, Tylenol #3 or Lortab. 2. Longer-term pain is more appropriately treated with non-narcotic medication such as Tylenol ES. 3. Muscle spasm is not appropriately treated with narcotics. Muscle relaxers such as Soma, Flexeril or Skelaxin can be used along with Tylenol ES. 4. Remember that we all live with some "aches and pains". This is not unusual or uncommon after an injury or as we get older. a. Back pain is expected and may include muscle spasms for 4 to 6 weeks after surgery. The pain should gradually improve. If the pain worsens for no apparent reason, please contact the office. b. Intermittent leg pain may also be experienced and should not be concerned about unless it worsens for no apparent reason. If so, please contact the office. 5. We will provide appropriate medication within the normal guidelines of their prescribed use. We will also be very cautious and aware of potential abuse and extended duration of patients' medication needs. a. Pain medications are for your comfort and to assist with sleep and rest so that the tissue can heal. They are not provided in order to return to normal activity and should not be used through the day. To do so or worsening pain at night can result from ongoing tissue damage and development of tolerance to the prescribed medicine. 6. Please allow 2-3 days to process refills. Prescriptions will not be mailed but must be picked up at the office. FOLLOW UP VISIT: Keep your scheduled follow-up appointment. Any questions, please call the office at . Pending Studies at Discharge: No Stand-Alone Forms: My [facility] [employer], Smoking Cessation Medications and DC Order Prescriptions: New tramadol 50 mg tablet 50 mg PO Q6H PRN (Reason: pain, moderate) Qty: 30 0RF oxycodone 5 mg tablet 5 mg PO Q6H PRN (Reason: pain) Qty: 30 0RF Continued lorazepam 1 mg tablet 1 mg PO DAILY PRN (Reason: anxiety) Qty: 30 0RF Patient Comments: does not use often aripiprazole 2 mg tablet 2 mg PO DAILY Qty: 30 2RF meloxicam 7.5 mg tablet 7.5 mg PO DAILY PRN (Reason: pain) Qty: 90 3RF Nurtec ODT 75 mg tablet,disintegrating 75 mg PO DIRECTED PRN (Reason: Migraine Headache) 0RF riboflavin (vitamin B2) 400 mg tablet 400 mg PO DAILY Qty: 30 0RF magnesium glycinate 100 mg magnesium capsule 400 mg PO DAILY Qty: 30 0RF (DME) digital therapeutic,ALEYDA device Misc See Rx Instructions miscellaneous .MEDSUPPLY Qty: 1 0RF Rx Instructions: As directed propranolol 60 mg capsule,extended release 24 hr 60 mg PO DAILY Qty: 30 2RF rizatriptan 10 mg tablet,disintegrating See Rx Instructions PO .COMPLEX Qty: 30 3RF Rx Instructions: take 1 tab at onset of headache; if no relief may repeat 1 tab after at least 2 hrs; max = 3 tabs/24 hr PO bupropion HCl 150 mg tablet sustained-release 12 hr 150 mg PO BID ondansetron 4 mg tablet,disintegrating 4 mg PO Q6H PRN (Reason: nausea and vomiting) Qty: 10 0RF duloxetine 30 mg capsule,delayed release(DR/EC) 30 mg PO QAM Rx Instructions: TOTAL DOSE 90 MG--TAKES WITH 60 MG CAP. duloxetine 60 mg capsule,delayed release(DR/EC) 60 mg PO QAM Rx Instructions: TOTAL DOSE 90 MG--TAKES WITH 30 MG CAP. Discharge Orders: Discharge Order (Routine); Ordered 05/29/23 Ordered By: Marianne Muñoz Admission Data Admit Date/Time: 05/24/23 15:47 Attending Provider: Marianne Muñoz Admit Provider: Marianne Muñoz Primary Care Provider: Kelin Perez Other Providers: Jose Chandra; Thai Johnson Other Interventions: Discharge Summary Assessment (RN) Last Done: 05/29/23 10:25 Coding Level of Care Code 29325 INP/OBS DISCH >30 MIN Diagnoses Osteomyelitis of lumbar vertebra M46.26 Epidural abscess, L2-L5 G06.1 Depression with anxiety F41.8
== END 2023-05-29 10:52 | disposition home or self-care (01) | DRG 454 ==
LOC: ED 18:59 → 3E 18:59 → SUATTDRO 05-23 03:51 → 3E 05-23 06:03 → SUATTDRO 05-24 15:47

== ENCOUNTER 2023-06-02 15:58 | Observation (INO) ==
--- NOTE | 2023-06-02 16:25 | Emergency Department Note ---
Impression & Plan Back pain, Post-op pain, Leg muscle spasm, Fall ED Provider Note NAME: KATELYN SCHMID AGE: 52 SEX: M : 1970 ARRIVES VIA: Ambulance INFORMANT: Patient ED PROVIDER(S): Hair Corrales DO CHIEF COMPLAINT: back pain HPI: Patient is a 52-year-old male with a past medical history of osteomyelitis, chronic back pain and migraines who presents to the ER for lower back pain and spasms. Patient had surgery on the ninth by Dr. Johnson for an L4-S1 fusion. He notes he has been getting spasms in his legs and back. He is on Valium and has been taking oxycodone. This has not been helping. He denies any headache or change in vision. notes and provides additional history that he has been falling and he needs placement. They cannot care for him at home. No numbness in the groin. No new weakness or numbness in the legs. He has been taking the Oxy and Valium persistently with no improvement. ADDITIONAL HISTORY OBTAINED: Per HPI Chronic Medical/Social Conditions Affecting Care: Per HPI PAST MEDICAL HISTORY:See Below PAST SURGICAL HISTORY:See Below FAMILY HISTORY:See Below SOCIAL HISTORY:See Below HOME MEDICATIONS:See Below ALLERGIES:See Below VITALS:See Below PHYSICAL EXAMINATION: GENERAL: Sitting up in bed, alert, well appearing, well nourished, no distress, non-toxic EYE EXAM: normal conjunctiva. PERRL and EOM's grossly intact. HEAD: NC/AT OROPHARYNX: no exudate, no erythema, lips, buccal mucosa, and tongue normal and mucous membranes are moist NECK: supple, no nuchal rigidity, no adenopathy, non-tender LUNGS: Clear to auscultation. Normal chest wall mechanics HEART: no murmurs, S1 normal and S2 normal ABDOMEN: abdomen soft, non-tender, normo-active bowel sounds, no masses, no rebound or guarding. BACK: Midline incision is dressed with Steri-Strips and blood. No surrounding erythema or induration. UPPER EXTREMITIES: upper extremities are grossly normal. LOWER EXTREMITIES: Flexion-extension bilateral hips knees and ankles and EHL intact 4 out of 5 bilaterally NEURO EXAM: Normal sensorium, cranial nerves II-XII grossly intact, normal speech, no gross weakness of arms, no gross weakness of legs. MEDICAL DECISION MAKING: Patient is a 52-year-old male who presents the ER for back pain associated with spasms in his legs postop from Dr. Mcmanus spinal surgery last week on the . IV established medicals obtained. Labs show no significant leukocytosis and mild anemia will 11.8. BMP with LFTs bilirubin was unremarkable. Lipase was normal. X-rays of the spine were unremarkable. CT head and cervical spine were negative. He was updated bedside. Discussed with Dr. Flores following giving IV fluids and morphine. He was admitted for further workup and will need placement after discussion with the who was present at bedside. Consults/Care Managements Discussions: Per [facility] Triage Nursing notes reviewed. Limited review of prior medical records performed Vital Signs: reviewed and remarkable for no significant abnormalities Differential diagnosis: Musculoskeletal, disc herniation, fracture, metastatic disease, cord compression, discitis, sciatica, cauda equina, infection, aortic disease, renal colic, gastrointestinal, as well as other pathologies. ER treatment provided: See below Diagnostics interpreted by me include EKG and cardiac monitoring as listed below: -Cardiac Monitoring: An order was placed for continuous cardiac monitoring. The monitor shows a rate of 70 with sinus rhythm. -ECG: none -Laboratory studies:Interpreted by me as stated above in MDM and shown below. Imaging studies: Xrays: As interpreted by me: X-rays of the lumbar spine show no acute fracture or dislocation CTs show: CT head and cervical spine was negative per radiology Procedures:none Critical Care: None Past Med/Surg History Medical History (Updated 06/02/23 @ 23:08 by Hair Corrales DO) Neurogenic claudication due to lumbar spinal stenosis Epidural abscess, L2-L5 Osteomyelitis of lumbar vertebra Tear of medial meniscus of left knee Tear of lateral meniscus of left knee Left knee DJD Wrist arthropathy Left scapholunate ligament tear Migraines Bilateral nonpulsatile tinnitus Depression with anxiety Chronic wrist pain Surgical History (Updated 06/02/23 @ 21:02 by Dale Cooper PA-C) History of arthroscopy of left knee 11/03/22 ([place]) Left knee scope, PMM, subtotal lateral meniscectomy, chondroplasty and debridement of calcinosis Hx of colonoscopy Hx of tonsillectomy S/P ACL repair Left S/P ACL repair Right Family History Mother Brain cancer Father Diabetes Denies family history of Ovarian cancer Prostate cancer Myocardial infarction Breast cancer Colorectal cancer Social History Smoking Status: Never smoker Second Hand Exposure: Yes (hx as child); Do You Dip or Chew Tobacco: No; Hx Alcohol Use: No Hx Substance Use: No Preferred Language: Omani Communication Ability: Effective Supervisor Filtration Required: No Beliefs That Will Affect Care: None marital status: Current Living Situation: Significant Other Current Living Situation Comment: Lives with Fimatti. current occupational status: employed Feels Safe at Home: Yes Childhood Exposure to Second-Hand Smoke: Yes Dental Care, Regularly: Yes Physical Activity Frequency: 3-4 Times per Week Seatbelt Use: always Sunscreen Use: Yes Assistive Devices: None Allergies Allergies Allergy/AdvReac Type Severity Reaction Status Date / Time hydrocodone AdvReac Intermediate Irritable Verified 06/02/23 17:19 Home Meds Home Medications Medication Instructions Recorded Confirmed bupropion HCl 150 mg tablet,12 hr 150 mg PO BID 05/10/23 06/02/23 sustained-release duloxetine 60 mg capsule,delayed 60 mg PO QAM 05/22/23 06/02/23 release Previous Rx's Medication Instructions Recorded meloxicam 7.5 mg tablet 7.5 mg PO DAILY PRN pain #90 tabs 05/11/22 ondansetron 4 mg disintegrating 4 mg PO Q6H PRN nausea and 11/03/22 tablet vomiting #10 tabs rizatriptan 10 mg disintegrating See Rx Instructions PO .COMPLEX 11/19/22 tablet #30 tabs lorazepam 1 mg tablet 1 mg PO DAILY PRN anxiety #30 tabs 03/11/23 digital therapeutic,ALEYDA device #1 ea 04/22/23 magnesium glycinate 400 mg (4 x 100 mg magnesium) PO 04/22/23 DAILY #30 caps propranolol 60 mg capsule,24 60 mg PO DAILY #30 caps 04/22/23 hr,extended release riboflavin (vitamin B2) 400 mg 400 mg PO DAILY #30 tabs 04/22/23 tablet aripiprazole 2 mg tablet 2 mg PO DAILY #30 tabs 05/13/23 oxycodone 5 mg tablet 5 mg PO Q6H PRN pain #30 tabs 05/26/23 tramadol 50 mg tablet 50 mg PO Q6H PRN pain, moderate 05/26/23 #30 tabs cyclobenzaprine 10 mg tablet 10 mg PO Q8 PRN muscle spasm #20 05/30/23 tabs Results & Data (ED) Vital Signs Vital Signs - 24 hr 06/02/23 16:04 06/02/23 18:57 Temperature 37.2 C Temperature Source Oral Pulse Rate [Right Finger] 89 Respiratory Rate 16 18 Respiratory Effort / Characteristics Non-Labored Spontaneous Respiratory Depth Normal Blood Pressure 98/69 L Blood Pressure [Right Arm] 112/65 Blood Pressure Mean 78 Blood Pressure Mean [Right Arm] 80 Pulse Oximetry 97 95 Oxygen Delivery Method Room Air Room Air Sepsis Recent Fever Within 48 Hours No Sepsis New/Unexplained Change in Mental Status No Sepsis Action Taken by Nursing No Action Required Laboratory Data 06/02/23 16:10 06/02/23 16:10 Lab Results 06/02/23 Range/Units 16:10 WBC 7.92 (4.8-10.8) K/ul RBC 3.90 L (4.70-6.10) M/uL Hgb 11.8 L (14.0-18.0) g/dl Hct 37.0 L (42.0-52.0) % MCV 94.9 (80.0-100.0) fL MCH 30.3 (25.0-34.0) pg MCHC 31.9 L (32.0-36.0) g/dL RDW Std Deviation 46.0 (36.4-46.3) fL RDW Coeff of Juan Miguel 13.4 (11.5-14.5) % Plt Count 224 (130-400) K/uL MPV 9.1 L (9.4-12.4) fL Neutrophils % (Manual) 73 % Lymphocytes % (Manual) 14 % Monocytes % (Manual) 9 % Eosinophils % (Manual) 1 % Basophils % (Manual) 1 % Metamyelocytes % (Man) 2 % Neutrophils # (Manual) 5.78 (1.40-6.50) K/uL Total Absolute Neuts 5.78 (1.4-6.5) K/uL Lymphocytes # (Manual) 1.11 L (1.2-3.4) K/uL Total Abs Lymphocytes 1.11 L (1.2-3.4) K/uL Monocytes # (Manual) 0.71 H (0.11-0.59) K/uL Eosinophils # (Manual) 0.08 (0-0.50) K/uL Basophils # (Manual) 0.08 (0-0.2) K/uL Metamyelocytes # (Man) 0.16 H (0-0) K/uL Sodium 135 L (136-145) mmol/L Potassium 4.0 (3.5-5.1) mmol/L Chloride 100 (98-107) mmol/L Carbon Dioxide 33 H (21-32) mmol/L Anion Gap 2 L (3-11) BUN 14 (6-23) mg/dl Creatinine 1.22 (0.6-1.4) mg/dl Est Cr Clr Drug Dosing 86.5 ml/min Est GFR ( Amer) 77.4 ml/min Est GFR (Non-Af Amer) 66.8 ml/min BUN/Creatinine Ratio 11.5 (10-20) Glucose 80 (70-99(Fasting)) mg/dl Calcium 8.9 (8.6-10.3) mg/dl Phosphorus 3.2 (2.5-4.9) mg/dl Magnesium 2.3 (1.7-2.4) mg/dl Total Bilirubin 0.5 (0.2-1.0) mg/dl AST 24 (13-39) U/L ALT 43 (7-52) U/L Alkaline Phosphatase 108 H (34-104) U/L Total Protein 6.0 (6.0-8.3) gm/dl Albumin 3.5 (3.4-5.0) gm/dl Globulin 2.5 (2.5-4.0) gm/dl Albumin/Globulin Ratio 1.4 (0.9-2) Lipase 7 L (11-82) U/L Administered Medications Baclofen (Baclofen 20 Mg Tab) 20 mg PO TID RANDALL Stop: 07/02/23 20:59 Last Admin: 06/02/23 22:08 Dose: 20 mg Documented By: AAW Lactated Ringer's (Lr) 1,000 mls @ 100 mls/hr IV .Q10H RANDALL Stop: 06/03/23 06:44 Last Admin: 06/02/23 21:20 Dose: 100 mls/hr Documented By: AAW Morphine Sulfate (Morphine Sulfate 2 Mg/Ml Carp) 2 mg IV Q4H PRN PRN Reason: Pain(6+) Stop: 06/16/23 21:59 Last Admin: 06/02/23 22:07 Dose: 2 mg Documented By: ALEXANDRE Discontinued Medications Acetaminophen (Acetaminophen 500 Mg Tab) 1,000 mg PO NOW STA Stop: 06/02/23 20:43 Last Admin: 06/02/23 21:20 Dose: 1,000 mg Documented By: ALEXANDRE Sodium Chloride (Nss) 1,000 mls @ 999 mls/hr IV .Q1H1M ONE Stop: 06/02/23 19:40 Last Infusion: 06/02/23 21:18 Dose: Infused Documented By: Admin: 06/02/23 19:12 Dose: 999 mls/hr Documented By: ALEXANDRE Morphine Sulfate (Morphine Sulfate 4 Mg/Ml 1 Ml Carp\Vial) 4 mg IV NOW STA Stop: 06/02/23 16:22 Last Admin: 06/02/23 16:41 Dose: 4 mg Documented By: MR Imaging Data Radiologist's Impression: Cervical Spine CT 06/02/23 16:20 CT OF THE CERVICAL SPINE WITHOUT CONTRAST CLINICAL HISTORY: fall COMPARISON STUDY: No previous studies for comparison. TECHNIQUE: Helical axial images of the cervical spine were obtained without IV contrast. Sagittal and coronal reconstructions were viewed. Automated exposure control was utilized for the study. A dose lowering technique was utilized adhering to the principles of ALARA. FINDINGS: Alignment of the cervical spine is anatomic. Vertebral body heights are maintained. No acute cervical spine fracture or subluxation is present. There is no prevertebral edema. Facet joints are intact. There is moderate multilevel disc space narrowing, osteophytosis and facet arthrosis within the cervical spine. IMPRESSION: No acute cervical spine fracture or subluxation. ACT 112: Negative or not required by law. Electronically signed by: Jose Guadalupe Ferguson M.D. 06/02/2023 7:[address] 06/02/23 16:20 CT OF THE HEAD WITHOUT CONTRAST CLINICAL HISTORY: Fall. COMPARISON STUDY: No previous studies for comparison. TECHNIQUE: Helical axial images of the head were obtained without IV contrast. Automated exposure control was utilized for the study. A dose lowering technique was utilized adhering to the principles of ALARA. FINDINGS: No acute intracranial hemorrhage, midline shift or mass effect is present. The ventricular system is unremarkable. The basal cisterns are patent. No extra-axial collections are present. There are no findings to suggest acute dural sinus thrombosis or acute territorial infarct. No significant calvarial abnormalities are present. Visualized portions of the sinuses and mastoid air cells are clear. IMPRESSION: 1. No acute intracranial findings. 2. No calvarial fractures. ACT 112: Negative or not required by law. Electronically signed by: Jose Guadalupe Ferguson M.D. 06/02/2023 7:05 PM Lumbar Spine X-Ray 06/02/23 16:20 XR lumbar spine 2-3V CLINICAL HISTORY: fall COMPARISON STUDY: Lumbar spine CT and lumbar spine MRI May 23, 2023. FINDINGS: Alignment of the lumbar spine is anatomic. There are postoperative findings consistent with L4-L5 and L5-S1 discectomies with interbody spacer placement. There are bilateral pedicle screws at the L4-S1 levels with posterior decompression. Hardware is intact. No lumbar spine fractures are identified. IMPRESSION: 1. No lumbar spine fractures. 2. Status post L4-S1 decompression and fusion. Hardware intact. ACT 112: Negative or not required by law. Electronically signed by: Jose Guadalupe Ferguson M.D. 06/02/2023 5:58 PM Discharge Plan Visit Data Chief Complaint: Fall Stated Complaint: FALL, [facility] PA[facility] ED Provider: Hair Corrales Discharge Problem: Back pain, Post-op pain, Leg muscle spasm, Fall Patient Disposition: Admitted As Inpatient Discharge Instructions Interventions: ED Discharge Assessment Last Done: 06/02/23 22:17 Discharge Problem: Back pain Qualifiers: Back pain location: low back pain Chronicity: acute Back pain laterality: u nspecified Sciatica laterality: sciatica laterality unspecified Fall Qualifiers: Encounter type: initial encounter Qualified Code(s): W19.XXXA - Unspecified fall, initial encounter
[2023-06-02] MEDS: MoRPHine SULFATE 4 MG/ML 1 ML CARP\\VIAL IV STA (16:41)
[2023-06-02 16:59] LABS: Hemoglobin 11.8 g/dl (14.0-18.0); Mean Corpuscular Hemoglobin 30.3 pg (25.0-34.0); Mean Corpuscular Hgb Conc 31.9 g/dL (32.0-36.0); Mean Corpuscular Volume 94.9 fL (80.0-100.0); Mean Platelet Volume 9.1 fL (9.4-12.4); Platelet Count 224 K/uL (130-400); RDW Coefficient of Variation 13.4 % (11.5-14.5); White Blood Count 7.92 K/ul (4.8-10.8)
[2023-06-02 17:16] LABS: Albumin Globulin Ratio 1.4 (0.9-2); Albumin Level 3.5 gm/dl (3.4-5.0); BUN Creatinine Ratio 11.5 (10-20); Bilirubin,Total 0.5 mg/dl (0.2-1.0); Calcium 8.9 mg/dl (8.6-10.3); Creatinine Clr Calc Pharmacy 86.5 ml/min; Est GFR (African American) 77.4 ml/min; Est GFR (Non-African American) 66.8 ml/min; Globulin 2.5 gm/dl (2.5-4.0)
[2023-06-02 17:45] LABS: ALC (manual) 1.11 K/uL (1.2-3.4); ANC (manual) 5.78 K/uL (1.4-6.5); Basophils # (manual) 0.08 K/uL (0-0.2); Basophils % (manual) 1 %; Eosinophils # (manual) 0.08 K/uL (0-0.50); Eosinophils % (manual) 1 %; Lymphocytes # (manual) 1.11 K/uL (1.2-3.4); Lymphocytes % (manual) 14 %; Metamyelocytes # (manual) 0.16 K/uL (0-0); Metamyelocytes % (manual) 2 %; Monocytes # (manual) 0.71 K/uL (0.11-0.59); Monocytes % (manual) 9 %; Neutrophils # (manual) 5.78 K/uL (1.40-6.50); Neutrophils % (manual) 73 %
--- NOTE | 2023-06-02 17:59 | XRay Report ---
XR lumbar spine 2-3V CLINICAL HISTORY: fall COMPARISON STUDY: Lumbar spine CT and lumbar spine MRI May 23, 2023. FINDINGS: Alignment of the lumbar spine is anatomic. There are postoperative findings consistent with L4-L5 and L5-S1 discectomies with interbody spacer placement. There are bilateral pedicle screws at the L4-S1 levels with posterior decompression. Hardware is intact. No lumbar spine fractures are iden tified. IMPRESSION: 1. No lumbar spine fractures. 2. Status post L4-S1 decompression and fusion. Hardware intact. ACT 112: Negative or not required by law. Electronically signed by: Jose Guadalupe Ferguson M.D. 06/02/2023 5:58 PM
--- NOTE | 2023-06-02 19:08 | CT Scan Report ---
CT OF THE HEAD WITHOUT CONTRAST CLINICAL HISTORY: Fall. COMPARISON STUDY: No previous studies for comparison. TECHNIQUE: Helical axial images of the head were obtained without IV contrast. Automated exposure con trol was utilized for the study. A dose lowering technique was utilized adhering to the principles o f ALARA. FINDINGS: No acute intracranial hemorrhage, midline shift or mass effect is present. The ventricular system is unremarkable. The basal cisterns are patent. No extra-axial collections are present. There are no findings to suggest acute dural sinus thrombosis or acute territorial infarct. No significant calvarial abnormalities are present. Visualized portions of the sinuses and mastoid air cells are nayana ar. IMPRESSION: 1. No acute intracranial findings. 2. No calvarial fractures. ACT 112: Negative or not required by law. Electronically signed by: Jose Guadalupe Ferguson M.D. 06/02/2023 7:05 PM
--- NOTE | 2023-06-02 19:08 | CT Scan Report ---
CT OF THE CERVICAL SPINE WITHOUT CONTRAST CLINICAL HISTORY: fall COMPARISON STUDY: No previous studies for comparison. TECHNIQUE: Helical axial images of the cervical spine were obtained without IV contrast. Sagittal a nd coronal reconstructions were viewed. Automated exposure control was utilized for the study. A do se lowering technique was utilized adhering to the principles of ALARA. FINDINGS: Alignment of the cervical spine is anatomic. Vertebral body heights are maintained. No acut e cervical spine fracture or subluxation is present. There is no prevertebral edema. Facet joints are intact. There is moderate multilevel disc space narrowing, osteophytosis and facet arthrosis within the cervical spine. IMPRESSION: No acute cervical spine fracture or subluxation. ACT 112: Negative or not required by law. Electronically signed by: Jose Guadalupe Ferguson M.D. 06/02/2023 7:07 PM
[2023-06-02] MEDS: SODIUM CHLORIDE 0.9% 1,000 ML IV ONE (19:12)
--- NOTE | 2023-06-02 20:17 | History & Physical Report ---
Date of Service June 02, 2023 Assessment & Plan (1) Ambulatory dysfunction: Plan: -Admit to med/sure -Currently stable but with uncontrolled low back pain/BL LE muscle spasms causing ambulatory dysfunction and falls -Muscle spasms are related to his recent lumbar spinal fusion/decompression -The combination of Valium and Oxycodone have been too sedating for the patient to be safely cared for by his at home -Will add on mag and phos levels -We will start the following regimen: >Q6H scheduled tylenol >Heating pad >TID Baclofen >PRN Morphine -PRN narcan for oversedation/respiratory depression -Fall precautions -PT/OT consults ordered -SQ lovenox for DVT PPX -HH diet -AM CBC, Bmp, mag (2) Status post lumbar spinal fusion: Plan: -Had spinal fusion and decompression with Dr. Johnson on 05/24/22 -No red flag symptoms after fall -Xray of the lumbar spine without acute findings -Rest of care per ambulatory dysfunction (3) Muscle spasms of both lower extremities: Plan: -See ambulatory dysfunction (4) Depression with anxiety: Plan: -Continue abilify, propranolol, wellbutrin, and cymbalta Plan The patient was discussed with Dr. Chandra at the time of the admission History of Present Illness Chief Complaint: ambulatory dysfunction, fall, need for placement Primary Care Provider: Kelin Perez MD Max is a 52 year old male with a PMH significant for chronic lumbar back pain S/P L4-5 L5-S1 decompression and fusion with Dr. Johnson on 05/25/23, depression with anxiety, and migraines who presented to the [facility] from home on 06/02/23 after sustaining a fall at home due to ongoing back pain and ambulatory dysfunction. He was initially noted to be hypotensive at 98/69 but was otherwise stable. Labs including CBC and CMP were unremarkable. CT of the head/lew/cervical spine wo con and xray of the lumbar spine were negative for acute findings. Prior to admission the patient was given 4 mg IV morphine and 1L NSS. At the time of the exam the patient was lying in bed on his left side with his legs flexed in no acute distress, his is at bedside, history was obtained from both. Since being discharged home on 05/28 the patient has experienced progressive muscle spasms in the low back and BL LE's, ambulatory dysfunction, and uncontrolled diarrhea. The patient was initially discharged on tramadol and oxycodone which were ineffective for his symptoms. He was then prescribed Flexeril, which again was ineffective. They next tried Valium which worked better than the flexeril but also made him more sedated. His explains that the patient has been very stubborn in regards to trying to get out of bed himself and not letting her help him. Earlier today he got out of bed and started to ambulate with his walker, his right foot hit one of the walker wheels and immediately cause BL muscle spasms in his legs causing him to fall. He did hit the left side of his forehead but did not lose consciousness. He denies new paresthesias, new weakness in the BL LE's, loss of bowel or bladder function, and saddle anesthesia. His states that the patient has been too fatigued and weak for her to safely care for him at home at this time. Please refer to Dr. Chandra's attestation for any changes to the treatment plan Allergies Allergy/AdvReac Type Severity Reaction Status Date / Time hydrocodone AdvReac Intermediate Irritable Verified 06/02/23 17:19 Home Medications Medication Instructions Recorded Confirmed Type meloxicam 7.5 mg tablet 7.5 mg PO DAILY PRN pain #90 tabs 05/11/22 06/02/23 Rx ondansetron 4 mg disintegrating 4 mg PO Q6H PRN nausea and 11/03/22 06/02/23 Rx tablet vomiting #10 tabs rizatriptan 10 mg disintegrating See Rx Instructions PO .COMPLEX 11/19/22 06/02/23 Rx tablet #30 tabs lorazepam 1 mg tablet 1 mg PO DAILY PRN anxiety #30 tabs 03/11/23 06/02/23 Rx digital therapeutic,ALEYDA device #1 ea 04/22/23 05/22/23 Rx magnesium glycinate 400 mg (4 x 100 mg magnesium) PO 04/22/23 06/02/23 Rx DAILY #30 caps propranolol 60 mg capsule,24 60 mg PO DAILY #30 caps 04/22/23 06/02/23 Rx hr,extended release riboflavin (vitamin B2) 400 mg 400 mg PO DAILY #30 tabs 04/22/23 06/02/23 Rx tablet bupropion HCl 150 mg tablet,12 hr 150 mg PO BID 05/10/23 06/02/23 History sustained-release aripiprazole 2 mg tablet 2 mg PO DAILY #30 tabs 05/13/23 06/02/23 Rx duloxetine 60 mg capsule,delayed 60 mg PO QAM 05/22/23 06/02/23 History release oxycodone 5 mg tablet 5 mg PO Q6H PRN pain #30 tabs 05/26/23 06/02/23 Rx tramadol 50 mg tablet 50 mg PO Q6H PRN pain, moderate 05/26/23 06/02/23 Rx #30 tabs cyclobenzaprine 10 mg tablet 10 mg PO Q8 PRN muscle spasm #20 05/30/23 06/02/23 Rx tabs Past Med/Surg History Medical History (Updated 06/02/23 @ 23:08 by Hair Corrales, DO) Neurogenic claudication due to lumbar spinal stenosis Epidural abscess, L2-L5 Osteomyelitis of lumbar vertebra Tear of medial meniscus of left knee Tear of lateral meniscus of left knee Left knee DJD Wrist arthropathy Left scapholunate ligament tear Migraines Bilateral nonpulsatile tinnitus Depression with anxiety Chronic wrist pain Surgical History (Updated 06/02/23 @ 21:02 by Dale Cooper PA-C) History of arthroscopy of left knee 11/03/22 ([place]) Left knee scope, PMM, subtotal lateral meniscectomy, chondroplasty and debridement of calcinosis Hx of colonoscopy Hx of tonsillectomy S/P ACL repair Left S/P ACL repair Right Family History Mother Brain cancer Father Diabetes Denies family history of Ovarian cancer Prostate cancer Myocardial infarction Breast cancer Colorectal cancer Social History Smoking Status: Never smoker Second Hand Exposure: Yes (hx as child); Do You Dip or Chew Tobacco: No; Hx Alcohol Use: No Hx Substance Use: No Preferred Language: Turkish Communication Ability: Effective Per Diem Clerk Required: No Beliefs That Will Affect Care: None marital status: Current Living Situation: Significant Other Current Living Situation Comment: Lives with Fiance. current occupational status: employed Other Information That Helps Us Care for You: No Feels Safe at Home: Yes Safety Concerns: Feels Safe At This Time Childhood Exposure to Second-Hand Smoke: Yes Dental Care, Regularly: Yes Physical Activity Frequency: 3-4 Times per Week Seatbelt Use: always Sunscreen Use: Yes Assistive Devices: Hospital Bed and Walker Physical Exam Physical Exam: Physical Exam: General: In no acute distress, stated age, well-nourished, good hygiene HEENT: Normocephalic, atraumatic, no scleral icterus, pupils around round, symmetrical, and reactive to light, dry mucus membranes, trachea midline, no thyromegaly Chest/Pulm: No respiratory distress, symmetrical chest expansion, clear breath sounds throughout Cardiac: RRR, no murmurs noted Abdomen: Negative for ascites and bruising, normoactive bowel sounds, soft, non-tender to palpation throughout Musculoskeletal: Lumbar surgical site appears intact and healing well, bruising in the lower lumbar region is in various stages of healing but has not enlarged per patient's , no acute trauma noted from patient's fall, symmetrical strength in the BL LE's >Patient with significant muscle spasms in the low back and BL LE's with minimal movement of the torso or LE's Extremities: Radial, dorsalis pedis, and posterior tibial pulses are intact and symmetrical, no edema noted in the BL LE's Skin: Warm, dry, no rashes , lesions, or scars noted Neuro: Alert and oriented to person, place, month, year, and president, no focal defects, symmetrical sensation and motor function in the BL LE's Psych: Fatigued but calm and cooperative during the exam Results & Data Results & Data Vital Signs (Past 12 Hours) Vital Signs Temp Pulse Resp BP BP Pulse Ox O2 Del Method 06/02/23 18:57 89 18 112/65 95 Room Air 06/02/23 16:04 37.2 C 16 98/69 L 97 Room Air Laboratory Results Abnormal lab results 06/02/23 Range/Units 16:10 RBC 3.90 L (4.70-6.10) M/uL Hgb 11.8 L (14.0-18.0) g/dl Hct 37.0 L (42.0-52.0) % MCHC 31.9 L (32.0-36.0) g/dL MPV 9.1 L (9.4-12.4) fL Lymphocytes # (Manual) 1.11 L (1.2-3.4) K/uL Total Abs Lymphocytes 1.11 L (1.2-3.4) K/uL Monocytes # (Manual) 0.71 H (0.11-0.59) K/uL Metamyelocytes # (Man) 0.16 H (0-0) K/uL Sodium 135 L (136-145) mmol/L Carbon Dioxide 33 H (21-32) mmol/L Anion Gap 2 L (3-11) Alkaline Phosphatase 108 H (34-104) U/L Lipase 7 L (11-82) U/L Diagnostic Findings Cervical Spine CT 06/02/23 16:20 CT OF THE CERVICAL SPINE WITHOUT CONTRAST CLINICAL HISTORY: fall COMPARISON STUDY: No previous studies for comparison. TECHNIQUE: Helical axial images of the cervical spine were obtained without IV contrast. Sagittal and coronal reconstructions were viewed. Automated exposure control was utilized for the study. A dose lowering technique was utilized adhering to the principles of ALARA. FINDINGS: Alignment of the cervical spine is anatomic. Vertebral body heights are maintained. No acute cervical spine fracture or subluxation is present. There is no prevertebral edema. Facet joints are intact. There is moderate multilevel disc space narrowing, osteophytosis and facet arthrosis within the cervical spine. IMPRESSION: No acute cervical spine fracture or subluxation. ACT 112: Negative or not required by law. Electronically signed by: Jose Guadalupe Ferguson M.D. 06/02/2023 7:[address] 06/02/23 16:20 CT OF THE HEAD WITHOUT CONTRAST CLINICAL HISTORY: Fall. COMPARISON STUDY: No previous studies for comparison. TECHNIQUE: Helical axial images of the head were obtained without IV contrast. Automated exposure control was utilized for the study. A dose lowering technique was utilized adhering to the principles of ALARA. FINDINGS: No acute intracranial hemorrhage, midline shift or mass effect is present. The ventricular system is unremarkable. The basal cisterns are patent. No extra-axial collections are present. There are no findings to suggest acute dural sinus thrombosis or acute territorial infarct. No significant calvarial abnormalities are present. Visualized portions of the sinuses and mastoid air cells are clear. IMPRESSION: 1. No acute intracranial findings. 2. No calvarial fractures. ACT 112: Negative or not required by law. Electronically signed by: Jose Guadalupe Ferguson M.D. 06/02/2023 7:05 PM Lumbar Spine X-Ray 06/02/23 16:20 XR lumbar spine 2-3V CLINICAL HISTORY: fall COMPARISON STUDY: Lumbar spine CT and lumbar spine MRI May 23, 2023. FINDINGS: Alignment of the lumbar spine is anatomic. There are postoperative findings consistent with L4-L5 and L5-S1 discectomies with interbody spacer placement. There are bilateral pedicle screws at the L4-S1 levels with posterior decompression. Hardware is intact. No lumbar spine fractures are identified. IMPRESSION: 1. No lumbar spine fractures. 2. Status post L4-S1 decompression and fusion. Hardware intact. ACT 112: Negative or not required by law. Electronically signed by: Jose Guadalupe Ferguson M.D. 06/02/2023 5:58 PM Code Status & VTE Plan Code Status Full code VTE Prophylaxis Plan VTE Prophylaxis will be ordered: Yes Supervising Physician Co-Signing Physician Notes Attending addendum: I have physically seen this patient, have supervised the AMANDA's activities, and agree with the H&P unless as otherwise noted. Assessment and Plan: Ambulatory dysfunction status post lumbar spine surgery- Admit to [facility] patient has significant back pain, and this pain seems to more related to muscle spasms, affecting his balance and causing falling. Patient's family is unable to adequately take care of him at this time X-ray lumbar spine shows L4-S1 decompression/fusion with hardware intact Patient had been on Valium and oxycodone in the outpatient setting, however, this appears to have been overly sedating, making it difficult for his significant other to take care of him at home Acetaminophen 650 mg by mouth every 6 hours ATC Heating pad as needed Add baclofen 20 mg p.o. every 8 hours ATC, this to be less sedating than medications that he has been on Morphine 2 mg IV every 4 hours as needed for breakthrough pain Consult PT/OT for possible inpatient rehab Depression with anxiety/migraine without aura- Continue usual outpatient medications: Aripiprazole, bupropion, duloxetine and propranolol PG Care Time/CCT Total # of Minutes Spent Total Time Spent with Patient: Total time spent is greater than 50% in coordination of care (as documented) at patient's floor/unit and/or counseling patient: Coding [place] [address] INT INP/OBS CARE 3/75MIN Patient Type Established Medical Decision Making High Complexity Diagnoses Ambulatory dysfunction R26.2 Status post lumbar spinal fusion Z98.1 Muscle spasms of both lower extremities M62.838 Depression with anxiety F41.8
[2023-06-02] MEDS ORDERED: NALOXONE HCL 0.4 MG/1 ML VIAL/CARP IV PRN (20:36)
[2023-06-02 21:14] LABS: Magnesium 2.3 mg/dl (1.7-2.4); Phosphorus 3.2 mg/dl (2.5-4.9)
[2023-06-02] MEDS: ACETAMINOPHEN 500 MG TAB PO STA (21:20)
[2023-06-02] MEDS: LACTATED RINGER'S 1,000 ML IV SCH (21:20)
[2023-06-02] MEDS: MoRPHine SULFATE 2 MG/ML CARP IV PRN (22:07)
[2023-06-02] MEDS: BACLOFEN 20 MG TAB PO SCH (22:08)
[2023-06-02] MEDS ORDERED: LORazepam 1 MG TAB PO PRN (22:43)
[2023-06-02] MEDS: buPROPion SR 150 MG TABCR PO SCH (23:29)
[2023-06-03] MEDS: ACETAMINOPHEN 325 MG TAB PO SCH (03:00)
[2023-06-03] MEDS: ENOXAPARIN INJ 40 MG/0.4 ML SYR SQ SCH (05:08)
[2023-06-03 06:52] LABS: Hemoglobin 11.3 g/dl (14.0-18.0); Mean Corpuscular Hemoglobin 30.5 pg (25.0-34.0); Mean Corpuscular Hgb Conc 32.3 g/dL (32.0-36.0); Mean Corpuscular Volume 94.3 fL (80.0-100.0); Mean Platelet Volume 9.2 fL (9.4-12.4); Platelet Count 218 K/uL (130-400); RDW Coefficient of Variation 13.3 % (11.5-14.5); RDW Standard Deviation 45.4 fL (36.4-46.3); Red Blood Count 3.71 M/uL (4.70-6.10); White Blood Count 6.61 K/ul (4.8-10.8)
[2023-06-03 07:15] LABS: BUN Creatinine Ratio 13.3 (10-20); Calcium 8.3 mg/dl (8.6-10.3); Creatinine Clr Calc Pharmacy 93.7 ml/min; Est GFR (African American) 84.9 ml/min; Est GFR (Non-African American) 73.3 ml/min
[2023-06-03 07:35] LABS: ALC (manual) 1.52 K/uL (1.2-3.4); Eosinophils # (manual) 0.07 K/uL (0-0.50); Eosinophils % (manual) 1 %; Lymphocytes # (manual) 1.52 K/uL (1.2-3.4); Lymphocytes % (manual) 23 %; Metamyelocytes # (manual) 0.13 K/uL (0-0); Metamyelocytes % (manual) 2 %; Monocytes # (manual) 0.66 K/uL (0.11-0.59); Monocytes % (manual) 10 %; Myelocytes # (manual) 0.13 K/uL (0-0); Myelocytes % (manual) 2 %; Neutrophils % (manual) 62 %
[2023-06-03] MEDS: ARIPIprazole 1 MG/ML ORAL SOLN 150 ML BTL PO SCH (08:54)
[2023-06-03] MEDS: DULoxetine HCL 60 MG CAP PO SCH (08:54)
[2023-06-03] MEDS: PROPRANOLOL HCL 60 MG LA CAP PO SCH (08:54)
--- NOTE | 2023-06-03 11:18 | Hospitalist Progress Note ---
Date of Service June 03, 2023 Assessment & Plan (1) Ambulatory dysfunction: Plan: Presented with uncontrolled low back pain/BL LE muscle spasms causing ambulatory dysfunction and falls -S/p Lumbar decompression and fusion L4-S1 with Dr. Johnson on 05/24 - At home using Valium and Oxycodone have been too sedating for the patient to be safely cared for by his at home - Discussed case with Dr. Johnson 06/02 - reviewed films, hardware intact - recommend initiating steroids (Dexamethasone ordered) Current pain regiment: >Q6H scheduled tylenol >Heating pad >TID Baclofen >PRN toradol, Morphine - Bowel regiment: senna with PRN miralax -PT/OT consults ordered (2) Status post lumbar spinal fusion: Plan: -Had spinal fusion and decompression with Dr. Johnson on 05/24/22 -No red flag symptoms after fall -Xray of the lumbar spine without acute findings -Rest of care per ambulatory dysfunction (3) Muscle spasms of both lower extremities: Plan: -See ambulatory dysfunction (4) Depression with anxiety: Plan: -Continue abilify, propranolol, wellbutrin, and cymbalta Plan Dispo: continued inpatient stay DVT proh: lovenox Admission and Anticipated Discharge Date Admission Date: June 02, 2023 Subjective Patient is resting in bed. States that the spams of his leg are worse than the actual pain in the back. He reports his pain is a 3/10 right now at rest. Does report that he did not have bowel movement for about a week and then took multiple different stools softeners and suppositories and then was sitting on the toilet for 30 hours straight with multiple loose stools. States he is confused why is pain is so uncontrolled - denies outside recreational drug use. Review of Systems Review of Systems: All systems reviewed & are unremarkable except as noted in Subjective Physical Exam Physical Exam: General: NAD, resting in bed VS as above Resp: normal respiratory effort, lungs clear to auscultation CV: RRR, no murmur, Abd: normal bowel sounds, non tender, no hepatosplenomegaly Extremities: Moves all extremities, no edema, b/l feet warm Neuro: A&O x3, Results & Data Results & Data Vital Signs (Past 12 Hours) Vital Signs Temp Pulse Resp BP Pulse Ox O2 Del Method 06/03/23 08:12 36.6 C 63 16 105/69 96 Room Air 06/03/23 07:29 Room Air Laboratory Results CBC and chemistry reviewed PG Care Time/CCT Total # of Minutes Spent Total Time Spent with Patient: Total time spent is greater than 50% in coordination of care (as documented) at patient's floor/unit and/or counseling patient: Coding Level of Care Code 79914 SUB INP/OBS CARE 2/35MIN Diagnoses Ambulatory dysfunction R26.2 Status post lumbar spinal fusion Z98.1 Muscle spasms of both lower extremities M62.838 Depression with anxiety F41.8
[2023-06-03] MEDS: dexAMETHasone 6 MG in SYRINGE 0 ML IV SCH (11:30)
[2023-06-03] MEDS: SENNA 8.6 MG TAB PO SCH (13:42)
[2023-06-03] MEDS: traMADol HCL 50 MG TABLET PO PRN (17:09)
--- NOTE | 2023-06-04 16:32 | Hospitalist Progress Note ---
Date of Service June 04, 2023 Assessment & Plan (1) Ambulatory dysfunction: Plan: Presented with uncontrolled low back pain/BL LE muscle spasms causing ambulatory dysfunction and falls -S/p Lumbar decompression and fusion L4-S1 with Dr. Johnson on 05/24 - At home using Valium and Oxycodone have been too sedating for the patient to be safely cared for by his at home - Discussed case with Dr. Johnson 06/02 - reviewed films, hardware intact - recommend initiating steroids (Dexamethasone ordered) Current pain regiment: >Q6H scheduled tylenol >Heating pad >TID Baclofen >PRN toradol, Morphine - Bowel regiment: senna with PRN miralax -PT/OT consults ordered - recommend home health - patient has been accepted with [facility] (2) Status post lumbar spinal fusion: Plan: -Had spinal fusion and decompression with Dr. Johnson on 05/24/22 -No red flag symptoms after fall -Xray of the lumbar spine without acute findings -Rest of care per ambulatory dysfunction (3) Muscle spasms of both lower extremities: Plan: -See ambulatory dysfunction (4) Depression with anxiety: Plan: -Continue abilify, propranolol, wellbutrin, and cymbalta Plan Dispo: continued inpatient stay until pain is more controlled, hopeful d/c tomorrow with HH (already arranged) DVT proh: lovenox Admission and Anticipated Discharge Date Admission Date: June 02, 2023 Subjective Patient requested to see me early this morning concerns that his pain was not being well managed. states that at rest and with activity it is overall well controlled, but when walking if he has "incidents" the pain spikes. when asked about the incidents he states he steps wrong or looses his balance and has to react quickly. Reiterated that PT will be the best to help asses this ambulatory dysfunction and also aide in determining next step of care. Encouraged to use PO pain medication as he will not be able to discharge with IV morphine Review of Systems Review of Systems: All systems reviewed & are unremarkable except as noted in Subjective Physical Exam Physical Exam: General: NAD, resting in bed VS as above breathing unlabored moves all extremities Results & Data Results & Data Vital Signs (Past 12 Hours) Vital Signs Temp Pulse Pulse Resp BP BP Pulse Ox 06/04/23 15:38 36.8 C 58 L 16 122/74 95 06/04/23 10:37 06/04/23 07:05 36.5 C 62 16 135/79 97 O2 Del Method 06/04/23 15:38 Room Air 06/04/23 10:37 Room Air 06/04/23 07:05 Room Air PG Care Time/CCT Total # of Minutes Spent Total Time Spent with Patient: Total time spent is greater than 50% in coordination of care (as documented) at patient's floor/unit and/or counseling patient: Coding Level of Care Code 02838 SUB INP/OBS CARE 2/35MIN Diagnoses Ambulatory dysfunction R26.2 Status post lumbar spinal fusion Z98.1 Muscle spasms of both lower extremities M62.838 Depression with anxiety F41.8
[2023-06-04] MEDS: POLYETHYLENE (MIRALAX) 17 GM PACK PO PRN (17:32)
[2023-06-05 03:23] LABS: Adenovirus F 40/41 PCR Not Detected (NotDetected); Astrovirus PCR Not Detected (NotDetected); Campylobacter PCR Not Detected (NotDetected); Cryptosporidium PCR Not Detected (NotDetected); Cyclospora cayetanensis PCR Not Detected (NotDetected); Entamoeba histolytica PCR Not Detected (NotDetected); Enteroaggregative E.coli(EAEC) Not Detected (NotDetected); Enteropathogenic E.coli (EPEC) Not Detected (NotDetected); Enterotoxigenic E.coli (ETEC) Not Detected (NotDetected); Giardia lamblia PCR Not Detected (NotDetected); Norovirus GI/GII PCR Not Detected (NotDetected); Plesiomonas shigelloides PCR Not Detected (NotDetected); Rotavirus A PCR Not Detected (NotDetected); Salmonella PCR Not Detected (NotDetected); Sapovirus PCR Not Detected (NotDetected); Shiga-like Toxin E.coli (STEC) Not Detected (NotDetected); Shigella/Enteroinvasive E.coli Not Detected (NotDetected); Vibrio cholerae PCR Not Detected (NotDetected); Vibrio species PCR Not Detected (NotDetected); Yersinia enterocolitica PCR Not Detected (NotDetected)
[2023-06-05] MEDS ORDERED: oxyCODONE HCL IR 5 MG TAB (IMMEDIATE RELEASE) PO PRN (09:54)
[2023-06-05] MEDS: POLYETHYLENE (MIRALAX) 17 GM PACK PO SCH (11:00)
[2023-06-05] MEDS: DOCUSATE SODIUM 100 MG CAP PO SCH (11:00)
--- NOTE | 2023-06-05 11:17 | Hospitalist Progress Note ---
Date of Service June 05, 2023 Assessment & Plan (1) Ambulatory dysfunction: Plan: Much improved with steroid therapy and baclofen. Continue OT and PT while hospitalized. Anticipate discharge to home tomorrow, June 05 (2) Status post lumbar spinal fusion: Plan: L4-L5 lumbar fusion with instrumentation and autograft on May 24. Appreciate consultation and recommendations by Dr. Johnson. Morphine will be discontinued and he will use oxycodone on a as needed basis. Colace and MiraLAX have been scheduled to prevent constipation which occurred before while on narcotics. Baclofen has helped considerably with the muscle spasms. Anticipate discharge home tomorrow, June 05, on baclofen and a prednisone tapering dose. (3) Muscle spasms of both lower extremities: Plan: Much improved with baclofen. (4) Depression with anxiety: Plan: Stable. Continue current medical management Plan Anticipate discharge to home tomorrow, June 05, on baclofen and a prednisone tapering dose Admission and Anticipated Discharge Date Admission Date: June 02, 2023 Subjective Alert and oriented. No distress. He is hesitant to go home today however, June 04. Will discontinue parenteral narcotics and use oxycodone on a as needed basis since this is what he will be on at home. Colace and MiraLAX are now scheduled because he had problems with constipation in the past. Anticipate discharge home tomorrow, June 05, on baclofen and a prednisone tapering dose. He will use oxycodone as needed for any recurrent back pain. Review of Systems 2 Review of Systems: Constitutional-no fever or chills ENT-no blurred vision, no double vision, no epistaxis, no sore throat Respiratory-no cough, no wheezing, no shortness of breath Cardiac-no palpitations, no chest pain, no syncope GI-no nausea, vomiting, diarrhea, melena, hematochezia -no urinary retention, no urinary incontinence, no dysuria, no hematuria Musculoskeletal-postoperative lumbar discomfort Skin-no bruising, no rashes, no pruritus Neuro-no isolated weakness, no paresthesia, no weakness Psych-no depression, no anxiety Physical Exam 2 Physical Exam: General-alert and oriented x3, no fever, no chills HEENT-head atraumatic and normocephalic, pupils equal and reactive to light, extraocular muscles intact Neck-no lymphadenopathy or thyromegaly, trachea midline Chest-clear to auscultation. No rales, wheezing or rhonchi Cardiac-regular rate and rhythm, normal S1 and S2 Abdomen-normal bowel sounds, no hepatosplenomegaly Extremities-no cyanosis, clubbing, or edema. Mild postoperative lumbar discomfort Neuro-cranial nerves II through XII intact, motor and sensory function within normal limits, strength symmetrical, no focal deficits Psych-normal affect, normal mood Results & Data Results & Data Vital Signs (Past 12 Hours) Vital Signs Temp Pulse Resp BP Pulse Ox O2 Del Method 06/05/23 08:00 36.3 C L 65 18 124/64 97 Room Air Laboratory Results 06/03/23 05:45 06/03/23 05:45 PG Care Time/CCT Total # of Minutes Spent Total Time Spent with Patient: Total time spent is greater than 50% in coordination of care (as documented) at patient's floor/unit and/or counseling patient: Coding Level of Care Code 48100 SUB INP/OBS CARE 3/50MIN Diagnoses Ambulatory dysfunction R26.2 Status post lumbar spinal fusion Z98.1 Muscle spasms of both lower extremities M62.838 Depression with anxiety F41.8
[2023-06-05] MEDS ORDERED: HYDROCODONE/ACETAMOPHEN 5/325MG TAB PO PRN (15:49)
[2023-06-05] MEDS: oxyCODONE HCL IR 5 MG TAB (IMMEDIATE RELEASE) PO PRN (16:49)
--- NOTE | 2023-06-06 15:59 | Hospitalist Progress Note ---
Date of Service June 06, 2023 Assessment & Plan (1) Ambulatory dysfunction: Plan: Much improved from admission with steroid therapy and baclofen. Continue OT and PT while hospitalized. Anticipate discharge to home June 06 (2) Status post lumbar spinal fusion: Plan: L4-L5 lumbar fusion with instrumentation and autograft on May 24. Appreciate consultation and recommendations by Dr. Johnson. Morphine will be discontinued and he will use oxycodone on a as needed basis. Colace and MiraLAX have been scheduled to prevent constipation which occurred before while on narcotics. Baclofen has helped considerably with the muscle spasms. Orthopedic spine surgery consultation ordered and pending (3) Muscle spasms of both lower extremities: Plan: Much improved with baclofen. (4) Depression with anxiety: Plan: Stable. Continue current medical management Plan Anticipate discharge to home on June 06 on baclofen, oxycodone and possibly a prednisone tapering dose Admission and Anticipated Discharge Date Admission Date: June 02, 2023 Subjective Alert and oriented. He is standing at the side of the bed at the time of my rounds. Brice Davison, is present and she wants guarantees that there will not be any problems after discharge. I informed her that there are no guarantees in medicine. They requested to speak to Dr. Johnson and consult has been placed. I suspect he will go home tomorrow, June 06, on oxycodone and baclofen. Perhaps a prednisone tapering dose if recommended by Dr. Johnson Review of Systems 2 Review of Systems: Constitutional-no fever or chills ENT-no blurred vision, no double vision, no epistaxis, no sore throat Respiratory-no cough, no wheezing, no shortness of breath Cardiac-no palpitations, no chest pain, no syncope GI-no nausea, vomiting, diarrhea, melena, hematochezia -no urinary retention, no urinary incontinence, no dysuria, no hematuria Musculoskeletal-postoperative lumbar discomfort Skin-no bruising, no rashes, no pruritus Neuro-no isolated weakness, no paresthesia, no weakness Psych-no depression, no anxiety Physical Exam 2 Physical Exam: General-alert and oriented x3, no fever, no chills HEENT-head atraumatic and normocephalic, pupils equal and reactive to light, extraocular muscles intact Neck-no lymphadenopathy or thyromegaly, trachea midline Chest-clear to auscultation. No rales, wheezing or rhonchi Cardiac-regular rate and rhythm, normal S1 and S2 Abdomen-normal bowel sounds, no hepatosplenomegaly Extremities-no cyanosis, clubbing, or edema. Mild postoperative lumbar discomfort Neuro-cranial nerves II through XII intact, motor and sensory function within normal limits, strength symmetrical, no focal deficits Psych-normal affect, normal mood Results & Data Results & Data Vital Signs (Past 12 Hours) Vital Signs Temp Pulse Pulse Resp BP BP Pulse Ox 06/06/23 15:45 36.6 C 71 18 145/90 H 95 06/06/23 07:35 36.9 C 66 18 130/76 96 O2 Del Method 06/06/23 15:45 Room Air 06/06/23 07:35 Room Air Laboratory Results 06/03/23 05:45 06/03/23 05:45 PG Care Time/CCT Total # of Minutes Spent Total Time Spent with Patient: Total time spent is greater than 50% in coordination of care (as documented) at patient's floor/unit and/or counseling patient: Coding Level of Care Code 48057 SUB INP/OBS CARE 2/35MIN Diagnoses Ambulatory dysfunction R26.2 Status post lumbar spinal fusion Z98.1 Muscle spasms of both lower extremities M62.838 Depression with anxiety F41.8
--- NOTE | 2023-06-07 12:54 | Discharge Summary ---
Discharge Summary Date of Service June 07, 2023 Notes For Next Care Provider Admitted for pain control s/p back surgery - received IV steroids - plan for home with home health Pain controlled with scheduled baclofen and tylenol, prn oxycodone Encouraged bowel regiment Medication Changes From Visit Baclofen 20mg TID oxycodone 5mg q6h prn Admission HPI Per Admitting Provider Bassem is a 52 year old male with a PMH significant for chronic lumbar back pain S/P L4-5 L5-S1 decompression and fusion with Dr. Johnson on 05/25/23, depression with anxiety, and migraines who presented to the [facility] ED from home on 06/02/23 after sustaining a fall at home due to ongoing back pain and ambulatory dysfunction. He was initially noted to be hypotensive at 98/69 but was otherwise stable. Labs including CBC and CMP were unremarkable. CT of the head/lew/cervical spine wo con and xray of the lumbar spine were negative for acute findings. Prior to admission the patient was given 4 mg IV morphine and 1L NSS. At the time of the exam the patient was lying in bed on his left side with his legs flexed in no acute distress, his is at bedside, history was obtain ed from both. Since being discharged home on 05/28 the patient has experienced progressive muscle spasms in the low back and BL LE's, ambulatory dysfunction, and uncontrolled diarrhea. The patient was initially discharged on tramadol and oxycodone which were ineffective for his symptoms. He was then prescribed Flexeril, which again was ineffective. They next tried Valium which worked better than the flexeril but also made him more sedated. His explains that the patient has been very stubborn in regards to trying to get out of bed himself and not letting her help him. Earlier today he got out of bed and started to ambulate with his walker, his right foot hit one of the walker wheels and immediately cause BL muscle spasms in his legs causing him to fall. He did hit the left side of his forehead but did not lose consciousness. He denies new paresthesias, new weakness in the BL LE's, loss of bowel or bladder function, and saddle anesthesia. His states that the patient has been too fatigued and weak for her to safely care for him at home at this time. Please refer to Dr. Chandra's attestation for any changes to the treatment plan Principal Dx & Hospital Course #1 = Principal Diagnosis (1) Ambulatory dysfunction: Presented with uncontrolled low back pain/BL LE muscle spasms causing ambulatory dysfunction and falls -S/p Lumbar decompression and fusion L4-S1 with Dr. Johnson on 05/24 - At home using Valium and Oxycodone have been too sedating for the patient to be safely cared for by his at home - Dr Johnson recommended steroids - recieved IV dexamthason while inpatient - Discharged with following pain regiment >Q6H scheduled tylenol >TID Baclofen >PRN oxycodone - Bowel regiment: senna, colace and miralax -PT/OT consults ordered - recommend home health - patient has been accepted with [facility] Discharge home today (2) Status post lumbar spinal fusion: L4-L5 lumbar fusion with instrumentation and autograft on May 24. Appreciate consultation and recommendations by Dr. Johnson. - agree with discharged today, 06/06 and outpatient follow up Baclofen has helped considerably with the muscle spasms. (3) Muscle spasms of both lower extremities: Much improved with baclofen. (4) Depression with anxiety: Stable. -Continue abilify, propranolol, wellbutrin, and cymbalta Plan Discharge to home with home health today Discharge Exam Moving around the room, demonstrates how to properly pick things up off the floor breathing unlabored, lungs clear cardiac exam regular rate and rhythm No LE edema Updated Medication List Medication Instructions Recorded Confirmed Type meloxicam 7.5 mg tablet 7.5 mg PO DAILY PRN pain #90 tabs 05/11/22 06/02/23 Rx ondansetron 4 mg disintegrating 4 mg PO Q6H PRN nausea and 11/03/22 06/02/23 Rx tablet vomiting #10 tabs rizatriptan 10 mg disintegrating See Rx Instructions PO .COMPLEX 11/19/22 06/02/23 Rx tablet #30 tabs lorazepam 1 mg tablet 1 mg PO DAILY PRN anxiety #30 tabs 03/11/23 06/02/23 Rx digital therapeutic,ALEYDA device #1 ea 04/22/23 05/22/23 Rx magnesium glycinate 400 mg (4 x 100 mg magnesium) PO 04/22/23 06/02/23 Rx DAILY #30 caps propranolol 60 mg capsule,24 60 mg PO DAILY #30 caps 04/22/23 06/02/23 Rx hr,extended release riboflavin (vitamin B2) 400 mg 400 mg PO DAILY #30 tabs 04/22/23 06/02/23 Rx tablet bupropion HCl 150 mg tablet,12 hr 150 mg PO BID 05/10/23 06/02/23 History sustained-release aripiprazole 2 mg tablet 2 mg PO DAILY #30 tabs 05/13/23 06/02/23 Rx duloxetine 60 mg capsule,delayed 60 mg PO QAM 05/22/23 06/02/23 History release oxycodone 5 mg tablet 5 mg PO Q6H PRN pain #30 tabs 05/26/23 06/02/23 Rx tramadol 50 mg tablet 50 mg PO Q6H PRN pain, moderate 05/26/23 06/02/23 Rx #30 tabs baclofen 20 mg tablet 20 mg PO TID #60 tabs 06/07/23 Rx oxycodone 5 mg tablet 10 mg (2 x 5 mg) PO Q6H PRN pain 06/07/23 Rx #30 tabs Hospital Stay Data Consultations 06/02/23 18:40 ED Decision to Admit Stat 06/06/23 15:57 Consult Orthopedic Spine Surgery Routine 06/07/23 12:03 Burn CD for patient Routine Diagnostic Imagining Performed Cervical Spine CT 06/02/23 16:20 CT OF THE CERVICAL SPINE WITHOUT CONTRAST CLINICAL HISTORY: fall COMPARISON STUDY: No previous studies for comparison. TECHNIQUE: Helical axial images of the cervical spine were obtained without IV contrast. Sagittal and coronal reconstructions were viewed. Automated exposure control was utilized for the study. A dose lowering technique was utilized adhering to the principles of ALARA. FINDINGS: Alignment of the cervical spine is anatomic. Vertebral body heights are maintained. No acute cervical spine fracture or subluxation is present. There is no prevertebral edema. Facet joints are intact. There is moderate multilevel disc space narrowing, osteophytosis and facet arthrosis within the cervical spine. IMPRESSION: No acute cervical spine fracture or subluxation. ACT 112: Negative or not required by law. Electronically signed by: Jose Guadalupe Ferguson M.D. 06/02/2023 7:[address] 06/02/23 16:20 CT OF THE HEAD WITHOUT CONTRAST CLINICAL HISTORY: Fall. COMPARISON STUDY: No previous studies for comparison. TECHNIQUE: Helical axial images of the head were obtained without IV contrast. Automated exposure control was utilized for the study. A dose lowering technique was utilized adhering to the principles of ALARA. FINDINGS: No acute intracranial hemorrhage, midline shift or mass effect is present. The ventricular system is unremarkable. The basal cisterns are patent. No extra-axial collections are present. There are no findings to suggest acute dural sinus thrombosis or acute territorial infarct. No significant calvarial abnormalities are present. Visualized portions of the sinuses and mastoid air cells are clear. IMPRESSION: 1. No acute intracranial findings. 2. No calvarial fractures. ACT 112: Negative or not required by law. Electronically signed by: Jose Guadalupe Ferguson M.D. 06/02/2023 7:05 PM Lumbar Spine X-Ray 06/02/23 16:20 XR lumbar spine 2-3V CLINICAL HISTORY: fall COMPARISON STUDY: Lumbar spine CT and lumbar spine MRI May 23, 2023. FINDINGS: Alignment of the lumbar spine is anatomic. There are postoperative findings consistent with L4-L5 and L5-S1 discectomies with interbody spacer placement. There are bilateral pedicle screws at the L4-S1 levels with posterior decompression. Hardware is intact. No lumbar spine fractures are identified. IMPRESSION: 1. No lumbar spine fractures. 2. Status post L4-S1 decompression and fusion. Hardware intact. ACT 112: Negative or not required by law. Electronically signed by: Jose Guadalupe Ferguson M.D. 06/02/2023 5:58 PM Pending Results Patient Have Any Pending Studies at Discharge: No Discharge Instructions Given to Patient (Per Discharging Provider) Hospital Medicine: You were admitted for pain control after you recent back surgery. You received IV steroids - Dr. Johnson did not feel that you needed steroids on discharge. We did not change any of your home medications. Recommend continued bowel regiment while you are taking narcotics. - you were taking Senna daily, Colace twice a day and miralax twice a day while you were here --> these can all be purchased over the counter. Please review all of the recommendations below from . Contact his office with any questions. Thank you for allowing us to participate in your care ACTIVITY RECOMMENDATIONS: SELF CARE INSTRUCTIONS AFTER THORACIC/LUMBAR FUSIONS 1. You may walk to your tolerance. It is good exercise for your legs and back. Expect some back and intermittent leg aches and pains. 2. You may perform "counter-top" level activities (make a sandwich, rosalina with a project, etc.). 3. No bending or lifting of more than 10 pounds or back twisting of any nature (roll like a log when turning in bed). 4. You may ride in a car for 20-30 minutes at a time. No driving until after your first visit with your doctor. 5. Frequent changes of position and restricting sitting to 30 minutes at a time will help limit the amount of back spasms and stiffness you may experience. 6. You may discontinue the use of ambulatory aids (cane, crutches, etc.) once your strength and confidence allow. 7. You may strip cutting machine operator the shower and let water strike your incision when you arrive home at least once daily. Do not take a tub bath, sit in a hot tub or go into a swimming pool until after your first recheck in the office. SPECIAL CARE INSTRUCTIONS: VERY IMPORTANT TO READ AND REVIEW A. Your surgical incision has been closed with a cosmetic suture under the skin that will dissolve in about 6 weeks. In 14 days, you can use a pair of clean scissors and cut the suture that is left outside of the skin at the ends of your incision. 1. The small skin tapes can be removed 7 days after surgery if they have not fallen off by that point. 2. You may keep the wound open to air as much as possible to promote healing after post-op day number 5 unless told otherwise by your doctor. 3. If you think the wound looks like it is becoming infected (redness or worsening drainage) and/or you are experiencing fever, chill or worsening back pain and muscle spasms, contact the office so that we may evaluate you as soon as possible. B. Complications are uncommon, but please contact us if you have any signs or symptoms of: 1. wound infection (fever higher than 102.5 degrees F, redness, separation of wound, drainage, or increasing pain from the incision) 2. blood clots in legs (pain, swelling, redness and warmth in legs) 3. urinary tract infection (fever higher than 102.5 degrees F, burning upon urination or increased frequency of urination) 4. nerve problems (inability to walk on your toes or heels, numbness, loss of bowel or bladder control) 5. any other symptoms that concern you C. Please call the office at if you have any concerns or questions about your operation or recovery. D. No smoking! Smoking drastically decreases the chance of a solid fusion. E. Do not take any anti-inflammatory medications (Indocin, Advil, Motrin, Aspirin, Naprosyn, etc.) as these may inhibit the chance of a solid fusion. Tylenol is okay to take for pain. MANAGING PAIN AFTER SPINAL SURGERY 1. Narcotic medication is intended for short-term use and will be provided for surgical pain. Surgical pain usually lasts for a period of 4-6 weeks. Narcotic medication includes Percocet, Vicodin, Darvocet, Tylenol #3 or Lortab. 2. Longer-term pain is more appropriately treated with non-narcotic medication such as Tylenol ES. 3. Muscle spasm is not appropriately treated with narcotics. Muscle relaxers such as Soma, Flexeril or Skelaxin can be used along with Tylenol ES. 4. Remember that we all live with some "aches and pains". This is not unusual or uncommon after an injury or as we get older. a. Back pain is expected and may include muscle spasms for 4 to 6 weeks after surgery. The pain should gradually improve. If the pain worsens for no apparent reason, please contact the office. b. Intermittent leg pain may also be experienced and should not be concerned about unless it worsens for no apparent reason. If so, please contact the office. 5. We will provide appropriate medication within the normal guidelines of their prescribed use. We will also be very cautious and aware of potential abuse and extended duration of patients' medication needs. a. Pain medications are for your comfort and to assist with sleep and rest so that the tissue can heal. They are not provided in order to return to normal activity and should not be used through the day. To do so or worsening pain at night can result from ongoing tissue damage and development of tolerance to the prescribed medicine. 6. Please allow 2-3 days to process refills. Prescriptions will not be mailed but must be picked up at the office. FOLLOW UP VISIT: Keep your scheduled follow-up appointment. Any questions, please call the office at . Total Time Total Time Spent Total Time Spent (In Minutes): Time spend day of discharge 35 minutes including direct patient care, medication reconciliation, documentation, review of labs and images, and coordination of care. Coding Level of Care Code 80181 INP/OBS DISCH >30 MIN Diagnoses Ambulatory dysfunction R26.2 Status post lumbar spinal fusion Z98.1 Muscle spasms of both lower extremities M62.838 Depression with anxiety F41.8
--- NOTE | 2023-06-07 14:04 | Orthopedic Consultation ---
Date of Consultation June 07, 2023 Assessment & Plan (1) Status post lumbar spinal fusion: At this time we will we will maintain pain medication and muscle relaxers. He understands he will need to wean from this over the course the next 5 to 7 days. He is following up in our office this week. History of Present Illness Reason for Consultation: Postoperative back pain Attending Physician: Dennys Jackson History of Present Illness This is a 52-year-old male known to me that status post lumbar decompression fusion. He was recently admitted for postoperative back spasms. He is improved dramatically with a combination of steroids and muscle relaxers. Today he is up and ambulating states his pain is well-controlled. Denies any radicular complaints. Denies any weakness. Allergies Allergy/AdvReac Type Severity Reaction Status Date / Time hydrocodone AdvReac Intermediate Irritable Verified 06/02/23 17:19 Home Medications Medication Instructions Recorded Confirmed Type meloxicam 7.5 mg tablet 7.5 mg PO DAILY PRN pain #90 tabs 05/11/22 06/02/23 Rx ondansetron 4 mg disintegrating 4 mg PO Q6H PRN nausea and 11/03/22 06/02/23 Rx tablet vomiting #10 tabs rizatriptan 10 mg disintegrating See Rx Instructions PO .COMPLEX 11/19/22 06/02/23 Rx tablet #30 tabs lorazepam 1 mg tablet 1 mg PO DAILY PRN anxiety #30 tabs 03/11/23 06/02/23 Rx digital therapeutic,ALEYDA device #1 ea 04/22/23 05/22/23 Rx magnesium glycinate 400 mg (4 x 100 mg magnesium) PO 04/22/23 06/02/23 Rx DAILY #30 caps propranolol 60 mg capsule,24 60 mg PO DAILY #30 caps 04/22/23 06/02/23 Rx hr,extended release riboflavin (vitamin B2) 400 mg 400 mg PO DAILY #30 tabs 04/22/23 06/02/23 Rx tablet bupropion HCl 150 mg tablet,12 hr 150 mg PO BID 05/10/23 06/02/23 History sustained-release aripiprazole 2 mg tablet 2 mg PO DAILY #30 tabs 05/13/23 06/02/23 Rx duloxetine 60 mg capsule,delayed 60 mg PO QAM 05/22/23 06/02/23 History release oxycodone 5 mg tablet 5 mg PO Q6H PRN pain #30 tabs 05/26/23 06/02/23 Rx tramadol 50 mg tablet 50 mg PO Q6H PRN pain, moderate 05/26/23 06/02/23 Rx #30 tabs baclofen 20 mg tablet 20 mg PO TID #60 tabs 06/07/23 Rx oxycodone 5 mg tablet 10 mg (2 x 5 mg) PO Q6H PRN pain 06/07/23 Rx #30 tabs Patient History Medical History (Updated 06/02/23 @ 23:08 by Hair Corrales, DO) Neurogenic claudication due to lumbar spinal stenosis Epidural abscess, L2-L5 Osteomyelitis of lumbar vertebra Tear of medial meniscus of left knee Tear of lateral meniscus of left knee Left knee DJD Wrist arthropathy Left scapholunate ligament tear Migraines Bilateral nonpulsatile tinnitus Depression with anxiety Chronic wrist pain Surgical History (Updated 06/02/23 @ 21:02 by Dale Cooper PA-C) History of arthroscopy of left knee 11/03/22 ([place]) Left knee scope, PMM, subtotal lateral meniscectomy, chondroplasty and debridement of calcinosis Hx of colonoscopy Hx of tonsillectomy S/P ACL repair Left S/P ACL repair Right Family History Mother Brain cancer Father Diabetes Denies family history of Ovarian cancer Prostate cancer Myocardial infarction Breast cancer Colorectal cancer Social History Smoking Status: Never smoker Second Hand Exposure: Yes (hx as child); Do You Dip or Chew Tobacco: No; Hx Alcohol Use: No Hx Substance Use: No Preferred Language: Vincentian Communication Ability: Effective Material Handler Required: No Beliefs That Will Affect Care: None marital status: Current Living Situation: Significant Other Current Living Situation Comment: Lives with Fiance. current occupational status: employed Feels Safe at Home: Yes Childhood Exposure to Second-Hand Smoke: Yes Dental Care, Regularly: Yes Physical Activity Frequency: 3-4 Times per Week Seatbelt Use: always Sunscreen Use: Yes Assistive Devices: None Physical Exam Physical Exam: On exam is up and ambulating. Distracted testing. Incisions clean dry intact without erythema or drainage. Results & Data Vital Signs (Past 12 Hours) Vital Signs Temp Pulse Pulse Resp BP BP Pulse Ox 06/07/23 12:44 36.4 C L 71 64 18 145/90 H 98 06/07/23 07:27 36.4 C L 64 18 158/97 H 98 O2 Del Method 06/07/23 12:44 06/07/23 07:27 Room Air
== END 2023-06-07 13:42 | disposition home or self-care (01) | DRG 556 ==
LOC: ED 15:58 → 3N 20:19 → INTOOBSV 20:19 → SUATTDRO 20:19 → 3N 22:17